=== PATIENT | female | born 1940 | race Caucasian/White ===

== ENCOUNTER → 2016-10-10 | Outpatient (CLI) | payer MEDICARE, BC ==
--- NOTE | 2016-10-10 15:32 | BD ---
EXAMINATION TYPE: MG DEXA axial skeleton. DATE OF EXAM: 10/10/2016 2:16 PM CLINICAL HISTORY: 76-year-old female osteoporosis Height: 61 Weight: 137 FRAX RISK QUESTIONS: Alcohol (3 or more units per day): no Family History (Parent hip fracture): no Glucocorticoids (More than 3mos): very very rarely uses inhaler (Ex: prednisone, prednisolone, methylprednisolone, dexamethasone, and hydrocortisone). History of Fracture in Adulthood: no Secondary Osteoporosis: 1. Type 1 Diabetes: no 2. Hyperthyroidism: no 3. Menopause before 45: yes 4. Malnutrition: no 5. Chronic liver disease: no Rheumatoid Arthritis: no Current Tobacco Use: no RISK FACTORS HISTORY OF: History of Fracture: no Family History of Osteoporosis: no Drink Alcohol: no Active: no Diet low in dairy products/other sources of calcium: no Postmenopausal woman: yes Take estrogen and/or progesterone medications: no Lost more than 2 inches in height since high school: no Frequent falls: no Poor Health: no Hyperparathyroidism: no Adrenal Insufficiency: no MEDICATIONS: Prednisone or other steroids: inhaler very very rarely Thyroid Medications: no Osteoporosis Medications: not now Which medication: Actonel How Long: no more than a year Additional Medications: calcium & Vitamin D, cholesterol meds EXAM MEASUREMENTS: Bone mineral densitometry was performed using the [facility]. Bone mineral density as measured about the Lumbar spine is: ----- L1-L4(G/cm2): 0.779 T Score Values are as follows: ----- L2: -3.3 ----- L3: -3.4 ----- L4: -3.1 ----- L1-L4: -3.3 Bone mineral density has: Increased 5.5% since study of: 07/02/2014 Bone mineral density about the R hip (g/cm2): 0.699 Bone mineral density about the L hip (g/cm2): 0.669 T Score values are as follows: -----R Neck: -2.4 -----L Neck: -2.7 -----R Intertrochanter: -2.9 -----L Intertrochanter: -2.5 Bone mineral density has: Decreased -0.9% since study of: 07/02/2014 IMPRESSION: Osteoporosis as indicated by T score values in the lumbar spine and both hips. There is increased fracture risk and therapy is usually indicated based on age. Re-Screen 1-2 years. NOTE: T-SCORE=SD OF THE YOUNG ADULT MEAN.
== END | disposition home or self-care (01) ==
LOC: RADBDWWP 12:57
PROVIDERS: ATTEND Obstetrics & Gynecology
DX: M81.0 Age-related osteoporosis without current pathological fracture (principal)
CPT/HCPCS: 77080

== ENCOUNTER → 2017-07-29 | Outpatient (CLI) | payer MEDICARE, BC ==
[2017-07-29 09:35] LABS: Basophils # (A) 0.1 k/uL (0-0.2); Basophils % (A) 1 %; CH 31.7; CHCM 31.8; Eosinophils # (A) 0.2 k/uL (0-0.7); Eosinophils % (A) 3 %; HCT 43.5 % (34.0-46.0); HGB 13.7 gm/dL (11.4-16.0); Luc # (Auto) 0.11; Luc % (Auto) 2; Lymphocytes # (A) 1.8 k/uL (1.0-4.8); Lymphocytes % (A) 36 %; MCH 31.6 pg (25.0-35.0); MCHC 31.5 g/dL (31.0-37.0); MCV 100.2 fL (80.0-100.0); Mean Platelet Volume 8.6; Monocytes # (A) 0.3 k/uL (0-1.0); Monocytes % (A) 6 %; Neutrophils # (A) 2.7 k/uL (1.3-7.7); Neutrophils % (A) 52 %; RBC 4.34 m/uL (3.80-5.40); RDW 13.5 % (11.5-15.5); WBC 5.2 k/uL (3.8-10.6); WBC (Perox) 4.91
[2017-07-29 09:53] LABS: ALT 26 U/L (9-52); AST 26 U/L (14-36); Alkaline Phosphatase 73 U/L (38-126); Anion Gap 7 mmol/L; Blood Urea Nitrogen 19 mg/dL (7-17); Calcium 9.6 mg/dL (8.4-10.2); Carbon Dioxide 28 mmol/L (22-30); Chloride 103 mmol/L (98-107); Cholesterol 191 mg/dL (<200); Glucose 94 mg/dL (74-99); HDL Cholesterol 76 mg/dL (40-60); Non-African American GFR(MDRD) >60 (>60 ml/min/1.73 sqM); Potassium 4.4 mmol/L (3.5-5.1); Sodium 138 mmol/L (137-145); Total Bilirubin 0.3 mg/dL (0.2-1.3); Total Protein 6.7 g/dL (6.3-8.2)
== END | disposition home or self-care (01) ==
LOC: LABWHC1 08:33
PROVIDERS: ATTEND Internal Medicine
DX: Z00.00 Encounter for general adult medical examination without abnormal findings (principal); E78.00 Pure hypercholesterolemia, unspecified
CPT/HCPCS: 36415; 80053; 80061; 84439; 84443; 85025

== ENCOUNTER → 2018-10-28 | Outpatient (CLI) | payer MEDICARE ==
[2018-10-28 10:18] LABS: Basophils # (A) 0.1 k/uL (0-0.2); Basophils % (A) 1 %; Eosinophils # (A) 0.2 k/uL (0-0.7); Eosinophils % (A) 3 %; HCT 42.9 % (34.0-46.0); Lymphocytes # (A) 1.9 k/uL (1.0-4.8); Lymphocytes % (A) 32 %; MCH 32.7 pg (25.0-35.0); MCHC 32.6 g/dL (31.0-37.0); MCV 100.4 fL (80.0-100.0); Mean Platelet Volume 8.3; Monocytes # (A) 0.3 k/uL (0-1.0); Monocytes % (A) 5 %; Neutrophils # (A) 3.3 k/uL (1.3-7.7); Neutrophils % (A) 57 %; Platelet Count 248 k/uL (150-450); RBC 4.28 m/uL (3.80-5.40); RDW 13.3 % (11.5-15.5); WBC 5.8 k/uL (3.8-10.6)
[2018-10-28 15:44] LABS: Albumin 4.4 g/dL (3.80-4.90); Albumin/Globulin Ratio 2.44 (1.60-3.17); Anion Gap 8.9 mmol/L (4.00-12.00); Calcium 9.5 mg/dL (8.7-10.3); Carbon Dioxide 28.1 mmol/L (21.6-31.8); Globulin 1.8 g/dL (1.6-3.3); LDL Cholesterol,Calculated 105.4 mg/dL (0.0-131.0); Potassium 4.4 mmol/L (3.5-5.5); Total Bilirubin 0.4 mg/dL (0.2-1.2); Total Protein 6.2 g/dL (6.2-8.2); VLDL Calculation 14.6 mg/dL (5.00-40.00)
[2018-10-28 15:50] LABS: T4, Free (Free Thyroxine) 1.2 ng/dL (0.80-1.80)
== END | disposition home or self-care (01) ==
LOC: LABWHC1 08:56
PROVIDERS: ATTEND Internal Medicine
DX: Z00.00 Encounter for general adult medical examination without abnormal findings (principal); E78.00 Pure hypercholesterolemia, unspecified; M15.9 Polyosteoarthritis, unspecified; M81.0 Age-related osteoporosis without current pathological fracture; J45.20 Mild intermittent asthma, uncomplicated; J47.9 Bronchiectasis, uncomplicated
CPT/HCPCS: 36415; 80053; 80061; 84439; 84443; 85025

== ENCOUNTER → 2021-02-01 | Outpatient (CLI) | payer MEDICARE ==
[2021-02-01 15:48] LABS: Basophils # (A) 0.07 X 10*3/uL (0.00-0.10); Basophils % (A) 1.1 %; Eosinophils # (A) 0.22 X 10*3/uL (0.04-0.35); Eosinophils % (A) 3.5 %; HCT 37.6 % (37.2-46.3); Lymphocytes # (A) 2.03 X 10*3/uL (0.90-5.00); Lymphocytes % (A) 31.9 %; MCH 32.2 pg (27.0-32.0); MCHC 31.9 g/dL (32.0-37.0); MCV 100.8 fL (80.0-97.0); Mean Platelet Volume 11.5 fL (9.5-12.2); Monocytes # (A) 0.53 X 10*3/uL (0.20-1.00); Monocytes % (A) 8.3 %; Neutrophils % (A) 54.9 %; Platelet Count 290 X 10*3/uL (140-440); RBC 3.73 X 10*6/uL (4.10-5.20); RDW 13.3 % (11.5-14.5); WBC 6.37 X 10*3/uL (4.50-10.00)
[2021-02-01 18:10] LABS: Erythrocyte Sedimentation Rate 18 mm/Hr (0-30)
[2021-02-02 00:15] LABS: African American GFR (CKD) 98.4 (60.0-200.0); Albumin 4.1 g/dL (3.80-4.90); Albumin/Globulin Ratio 2.05 (1.60-3.17); Anion Gap 9.7 mmol/L (4.00-12.00); BUN/Creat Ratio 26.67 Ratio (12.00-20.00); Carbon Dioxide 26.3 mmol/L (21.6-31.8); Chol/HDL Ratio 3.02; LDL Cholesterol,Calculated 108.6 mg/dL (0.0-131.0); Non-African American GFR(CKD) 84.9 (60.0-200.0); Potassium 4.5 mmol/L (3.5-5.5); Total Bilirubin 0.3 mg/dL (0.3-1.2); Total Protein 6.1 g/dL (6.2-8.2); VLDL Calculation 12.4 mg/dL (5.00-40.00)
== END | disposition home or self-care (01) ==
LOC: LABWHC1 08:34
PROVIDERS: ATTEND Internal Medicine
DX: Z00.00 Encounter for general adult medical examination without abnormal findings (principal); E78.5 Hyperlipidemia, unspecified
CPT/HCPCS: 36415; 80053; 80061; 84439; 84443; 85025; 85652

== ENCOUNTER → 2022-02-28 | Outpatient (CLI) | payer MEDICARE ==
[2022-02-28 14:50] LABS: Basophils # (A) 0.06 X 10*3/uL (0.00-0.10); Basophils % (A) 0.9 %; Eosinophils # (A) 0.15 X 10*3/uL (0.04-0.35); Eosinophils % (A) 2.2 %; HCT 40.5 % (37.2-46.3); HGB 12.8 g/dL (12.0-15.0); Immature Grans, Automated 0.3 %; Lymphocytes # (A) 2.31 X 10*3/uL (0.90-5.00); Lymphocytes % (A) 34.3 %; MCH 31.5 pg (27.0-32.0); MCHC 31.6 g/dL (32.0-37.0); MCV 99.8 fL (80.0-97.0); Mean Platelet Volume 11.6 fL (9.5-12.2); Monocytes # (A) 0.57 X 10*3/uL (0.20-1.00); Monocytes % (A) 8.5 %; NRBC Per 100 WBC 0 /100 WBCS (0.0-0.0); Neutrophils # (A) 3.62 X 10*3/uL (1.80-7.70); Neutrophils % (A) 53.8 %; Platelet Count 260 X 10*3/uL (140-440); RBC 4.06 X 10*6/uL (4.10-5.20); WBC 6.73 X 10*3/uL (4.50-10.00)
[2022-02-28 14:58] LABS: ALT 20 U/L (8-44); AST 31 U/L (13-35); African American GFR (CKD) 92.9 (60.0-200.0); Albumin 4.3 g/dL (3.8-4.9); Albumin/Globulin Ratio 1.65 (1.60-3.17); Alkaline Phosphatase 80 U/L (41-126); BUN/Creat Ratio 13.86 Ratio (12.00-20.00); Blood Urea Nitrogen 9.7 mg/dL (9.0-27.0); Calcium 9.1 mg/dL (8.7-10.3); Carbon Dioxide 28.2 mmol/L (20.0-27.5); Chloride 98 mmol/L (96-109); Globulin 2.6 g/dL (1.6-3.3); Glucose 99 mg/dL (70-110); LDL Cholesterol,Calculated 75.3 mg/dL (0.0-131.0); Non-African American GFR(CKD) 80.1 (60.0-200.0); Potassium 4.7 mmol/L (3.5-5.5); Sodium 135 mmol/L (135-145); Total Protein 6.9 g/dL (6.2-8.2); VLDL Calculation 11.66 mg/dL (5.00-40.00)
== END | disposition home or self-care (01) ==
LOC: LABWHC1 09:52
PROVIDERS: ATTEND Internal Medicine
DX: E78.1 Pure hyperglyceridemia (principal)
CPT/HCPCS: 36415; 80053; 80061; 84439; 84443; 85025

== ENCOUNTER → 2022-11-20 | Outpatient (CLI) | payer MEDICARE ==
[2022-11-20 15:27] LABS: African American GFR (CKD) 92.6 (60.0-200.0); Albumin 4.3 g/dL (3.8-4.9); Albumin/Globulin Ratio 1.9 (1.60-3.17); Anion Gap 12.3 mmol/L (10.00-18.00); BUN/Creat Ratio 21.71 Ratio (12.00-20.00); Calcium 9.5 mg/dL (8.7-10.3); Globulin 2.3 g/dL (1.6-3.3); Non-African American GFR(CKD) 79.9 (60.0-200.0); Potassium 4.8 mmol/L (3.5-5.5); Total Bilirubin 0.3 mg/dL (0.30-1.20); Total Protein 6.6 g/dL (6.2-8.2)
== END | disposition home or self-care (01) ==
LOC: LABWHC1 08:37
PROVIDERS: ATTEND Surgery
DX: K81.1 Chronic cholecystitis (principal)
CPT/HCPCS: 36415; 80053

== ENCOUNTER 2022-12-10 09:52 | Day surgery (SDC) | payer MEDICARE ==
[2022-12-06 08:57] VITALS: BMI 23.6
[~2022-12-10 09:52] MED LIST: ACETAMINOPHEN TAB 500 MG TAB PO PRN; DEXAMETHASONE SOD PHOSPHATE 4 MG/ML 1 ML VIAL IV ONE; HEPARIN SODIUM,PORCINE/PF 5,000 UNIT/0.5 ML SYRINGE SQ PRN; LIDOCAINE 1% (10MG/ML) FOR IV START INTRADERMA PRN; ONDANSETRON 4 MG/2 ML VIAL IVP ONE
[2022-12-10] MEDS: LACTATED RINGERS 1,000 ML IV SCH ×3 (10:21→16:10)
--- NOTE | 2022-12-10 11:25 | P.GSHP ---
History of Present Illness H&P Date: 12/10/22 Chief Complaint: Chronic cholecystitis 82-year-old female seen in the office 6 weeks ago. Patient with complaints of frequent right upper quadrant and epigastric pain. Seems to be aggravated by eating. Ultrasound shows numerous gallstones. No change in the color of her s kin urine or stool. Past Medical History Past Medical History: Asthma, COPD, Hyperlipidemia, Osteoarthritis (OA) Additional Past Medical History / Comment(s): tachycardia History of Any Multi-Drug Resistant Organisms: None Reported Past Surgical History: Hysterectomy Past Anesthesia/Blood Transfusion Reactions: No Reported Reaction Past Psychological History: No Psychological Hx Reported Smoking Status: Never smoker Past Alcohol Use History: None Reported Past Drug Use History: None Reported - Past Family History Mother Additional Family Medical History / Comment(s): heart disease Father Family Medical History: Cancer Medications and Allergies Home Medications Medication Instructions Recorded Confirmed Type Ezetimibe [Zetia] 10 mg PO DAILY 12/06/22 12/10/22 History Metoprolol Tartrate [Lopressor] 25 mg PO BID 12/06/22 12/10/22 History Allergies Allergy/AdvReac Type Severity Reaction Status Date / Time [id number] Reductase AdvReac muscle Verified 12/10/22 10:22 Inhibitor cramps Surgical - Exam Vital Signs Temp Pulse Resp BP Pulse Ox 97.8 F 65 16 162/69 97 12/10/22 10:19 12/10/22 10:19 12/10/22 10:19 12/10/22 10:19 12/10/22 10:19 - General Physical exam: General: Well-developed, well-nourished HEENT: Normocephalic, sclerae nonicteric Abdomen: Nontender, nondistended Extremities: No edema Neuro: Alert and oriented Assessment and Plan (1) Chronic cholecystitis Narrative/Plan: 82-year-old female with chronic cholecystitis. We'll proceed with laparoscopic, possible open cholecystectomy at this time. Risks of bleeding, infection, bile leak, bile duct injury, retained common bile duct stone, trocar injury, conversion to an open procedure, hernia, anesthesia related complications were reviewed. The patient understands and wishes to proceed. Current Visit: Yes Status: Acute Code(s): K81.1 - CHRONIC CHOLECYSTITIS SNOMED Code(s): 50993515
[2022-12-10] MEDS ORDERED: NEOSTIGMINE 1 MG/ML 10 ML VIAL ONE (11:32)
[2022-12-10] MEDS ORDERED: ETOMIDATE 2 MG/ML 10 ML VIAL ONE (11:32)
[2022-12-10] MEDS ORDERED: GLYCOPYRROLATE 0.2 MG/ML 2 ML VIAL ONE (11:32)
[2022-12-10] MEDS ORDERED: fentaNYL (PF) 50 MCG/ML 2 ML AMP ONE (11:32)
[2022-12-10] MEDS ORDERED: ePHEDrine 50 MG/ML 1 ML VIAL ONE (11:32)
[2022-12-10] MEDS ORDERED: ROCURONIUM 10 MG/ML (5 ML VIAL) IV ONE (11:32)
[2022-12-10] MEDS ORDERED: SUCCINYLCHOLINE CHLORIDE 200 MG/10 ML VIAL IV ONE (11:32)
[2022-12-10] MEDS ORDERED: ESMOLOL 100 MG/10 ML VIAL ONE (11:32)
[2022-12-10] MEDS ORDERED: BUPIVACAIN-EPI 0.25%-1:200,000 30 ML VIAL SQ ONE (11:45)
--- NOTE | 2022-12-10 12:42 | P.OP ---
Date of Procedure: 12/10/22 Procedure(s) Performed: PREOPERATIVE DIAGNOSIS: Chronic cholecystitis POSTOPERATIVE DIAGNOSIS: Same PROCEDURE: Laparoscopic cholecystectomy SURGEON: Lisandra EBL: Minimal see anesthesia record ANESTHESIA: Gen. COMPLICATIONS: None OPERATIVE PROCEDURE: The patient was brought and placed on the operating room table in the supine position. The patient was placed under general anesthesia at that time. The abdomen was prepped and draped in the usual sterile fashion. A small vertical infraumbilical incision was made. The fascia was grasped with the Sharon forceps. The fascia was retracted anteriorly. The Veress needle was advanced into the peritoneal cavity. The saline drop test was normal. Insufflation took place up to 15 mmHg. A 5 mm optical trocar was advanced and the peritoneal cavity. 2 additional 5 mm trochars were placed in the right upper quadrant under direct visualization. A 12 mm trocar was advanced into the epigastric incision site. The gallbladder was retracted superiorly and laterally. The peritoneum overlying the infundibulum was bluntly dissected. The patient's cystic duct was visualized. The junction between the cystic duct common and hepatic duct was identified. The critical view of safety was achieved after blunt dissection. The cystic duct was then divided after placement of 3 12 mm clips on the patient's side and one on the specimen side. The cystic artery was identified and clipped as well. A small vessel was seen along the gallbladder fossa and clipped as well. The gallbladder was then removed from the liver bed using electrocautery. The gallbladder was then removed from the epigastric trocar site with an Endo Catch bag. The gallbladder fossa was irrigated with saline. There was no evidence of any bleeding or biliary drainage seen. The fascia at the 12 millimeter site was closed using a Riaz-Aidee 0 Vicryl stitch. The trochars were then removed. The skin at all 4 sites was closed using a 4-0 Monocryl stitch. Skin glue was utilized on the incision sites. At the end of this procedure the sponge and needle counts were correct. DISPOSITION: Stable to the recovery room
[2022-12-10] MEDS ORDERED: traMADol 50 MG TAB PO SCH (12:45)
[2022-12-10] MEDS ORDERED: ACETAMINOPHEN TAB 325 MG TAB PO SCH (13:00)
[2022-12-10 13:01] VITALS: TEMP 97.2
[2022-12-10] MEDS: HYDROmorphone 0.5 MG/0.5 ML SYRINGE IVP PRN ×2 (13:15→13:28)
[2022-12-10 15:09] VITALS: RESP 18
[2022-12-10 15:10] VITALS: BP 145/73; PULSE 66
[2022-12-10] MEDS ORDERED: IBUPROFEN 600 MG TAB PO SCH (16:00)
== END 2022-12-10 16:15 | disposition home or self-care (01) ==
LOC: OR 09:52
PROVIDERS: ATTEND Surgery
DX: K81.1 Chronic cholecystitis (principal); J44.9 Chronic obstructive pulmonary disease, unspecified; E78.5 Hyperlipidemia, unspecified; M19.90 Unspecified osteoarthritis, unspecified site; Z90.710 Acquired absence of both cervix and uterus; Z82.49 Family history of ischemic heart disease and other diseases of the circulatory system; Z88.8 Allergy status to other drugs, medicaments and biological substances
CPT/HCPCS: 47562; J0330; J1100; J2710; J0690; J2405; J3010; J1170; J1644; 88304

== ENCOUNTER → 2023-02-12 | Outpatient (CLI) | payer MEDICARE ==
[2023-02-12 11:42] LABS: ALT 26 U/L (4-34); AST 36 U/L (14-36); African American GFR (CKD) >90 (>60 ml/min/1.73 sqM); Albumin 4.2 g/dL (3.5-5.0); Albumin/Globulin Ratio 1.4; Alkaline Phosphatase 91 U/L (38-126); Anion Gap 5 mmol/L; Blood Urea Nitrogen 12 mg/dL (7-17); Calcium 9.1 mg/dL (8.4-10.2); Carbon Dioxide 33 mmol/L (22-30); Chloride 97 mmol/L (98-107); Globulin 2.9 g/dL; Glucose 95 mg/dL (74-99); Non-African American GFR(CKD) 82 (>60 ml/min/1.73 sqM); Potassium 4.5 mmol/L (3.5-5.1); Sodium 135 mmol/L (137-145); Total Bilirubin 0.4 mg/dL (0.2-1.3); Total Protein 7.1 g/dL (6.3-8.2)
[2023-02-12 12:25] LABS: INR 0.9 (<1.2); Partial Thromboplastin Time 23.6 sec (22.0-30.0); Prothrombin Time 9.8 sec (9.0-12.0)
[2023-02-12 15:54] LABS: Basophils # (A) 0.06 X 10*3/uL (0.00-0.10); Basophils % (A) 0.9 %; Eosinophils # (A) 0.13 X 10*3/uL (0.04-0.35); HCT 41.4 % (37.2-46.3); HGB 13.5 d/dL (12.0-15.0); Lymphocytes # (A) 2.24 X 10*3/uL (0.90-5.00); Lymphocytes % (A) 34.3 %; MCH 32.3 pg (27.0-32.0); MCHC 32.6 d/dL (32.0-37.0); Mean Platelet Volume 11.8 FL (9.5-12.2); Monocytes # (A) 0.48 X 10*3/uL (0.20-1.00); Monocytes % (A) 7.4 %; NRBC Per 100 WBC 0 X 10*3/uL (0.00-0.01); Neutrophils # (A) 3.59 X 10*3/uL (1.80-7.70); Neutrophils % (A) 54.9 %; Platelet Count 274 X 10*3/uL (140-440); RBC 4.18 X 10*6/uL (4.10-5.20); WBC 6.53 X 10*3/uL (4.50-10.00)
--- NOTE | 2023-02-12 20:06 | CT ---
EXAMINATION TYPE: CT chest wo/w con DATE OF EXAM: 02/12/2023 COMPARISON: Radiograph 10/05/2022 HISTORY: 82-year-old female GB removed, CA of unknown primary, R16.0 K82.8 C80.1 C23. TECHNIQUE: Contiguous axial scanning of the chest before and after the administration of 100 mL of Is ovue 300. Coronal/sagittal reconstructions performed. CT DLP: 317.2mGycm. Automatic exposure control utilized for a dose reduction. FINDINGS: Heart is borderline enlarged without pericardial effusion. Ectasia of the ascending aorta 3.6 cm. Variant directly off of the left vertebral artery directly fro m the aortic arch. There is a 1.5 cm hypodense nodule of the right lobe of the thyroid gland that can be further evaluat ed with thyroid ultrasound. Large caliber to the main right and left pulmonary arteries measuring up to 2.7 cm suggesting underly ing pulmonary arterial hypertension. No thoracic lymphadenopathy by CT size criteria. Lower right paratracheal node measures up to 9 mm. Lungs show scattered tree-in-bud opacities and some centrilobular groundglass nodularity. 6 mm subpleural pulmonary nodule posterior right apex could reflect pleural parenchymal scarring. A couple benign calcified granulomas periphery of the right midlung. More focal 1.7 cm nodularity posterior right base could be infectious/inflammatory as well. There is some chronic volume loss and mild bronchiolectasis within the inferior lingula and medial ba silar right middle lobe. No pleural effusion. There is a small hiatal hernia. Cholecystectomy clips. Within the visualized upper abdomen, there are approximately 3 hepatic hypodensities which are nonspe cific, measuring up to 8 mm, first within the inferior right liver lobe, a second within segment 3, a nd the third in the mid left liver. These lesions should be reassessed at follow-up. A couple cysts are also noted within the liver, 1.0 cm in the left liver lobe and at the central hepa tic dome, 1.7 cm. Bones: Anterior endplate spondylosis lower thoracic spine. Normal variant sternal foramen. IMPRESSION: 1. Scattered tree-in-bud opacities as well as chronic volume loss within the inferior lingula and med ial right middle lobe. Correlate for infectious bronchiolitis and atypical infections including the p ossibility of atypical mycobacterial/EDWINA infections. Recommend pulmonary medicine evaluation. 2. A 1.7 cm area of nodularity at the posterior right base could represent an additional infectious/i nflammatory focus. Recommend three-month follow-up CT after any potential treatment. 3. Approximately 3 small hypodense lesions within the liver measuring up to 8 mm which are nonspecifi c. A couple additional lesions measuring up to 1.7 cm are also present and are suggestive of benign c ysts. The first 3 lesions should be reassessed at follow-up to exclude metastases. 4. Thyroid ultrasound to further characterize a 1.5 cm right thyroid lobe nodule.
== END | disposition home or self-care (01) ==
LOC: RADCTMAIN 10:47
PROVIDERS: ATTEND Transplant Surgery
DX: C23 Malignant neoplasm of gallbladder (principal); D89.834 Cytokine release syndrome, grade 4; E04.1 Nontoxic single thyroid nodule; K82.8 Other specified diseases of gallbladder; R16.0 Hepatomegaly, not elsewhere classified; K76.89 Other specified diseases of liver; R91.1 Solitary pulmonary nodule
CPT/HCPCS: 80053; 85025; 85610; 85730; 82105; 71270; 36415; Q9967

== ENCOUNTER → 2023-06-27 | Outpatient (CLI) | payer MEDICARE ==
[2023-06-27 15:23] LABS: African American GFR (CKD) >90 (>60 ml/min/1.73 sqM); Blood Urea Nitrogen 20 mg/dL (7-17); Non-African American GFR(CKD) 81 (>60 ml/min/1.73 sqM)
--- NOTE | 2023-06-28 10:58 | CT ---
EXAMINATION TYPE: CT ChestAbdPelvis w con CT DLP: 1183 mGycm, Automated exposure control for dose reduction was used. DATE OF EXAM: 06/27/2023 4:24 PM COMPARISON: 12/13/2022 CLINICAL INDICATION:Female, 83 years old with history of C23 MALIGNANT NEOPLASM OF GALLBLADDER; PHH, obs for mets. hx of ca in gallbladder. Technique: Multiple axial images of the chest, abdomen, and pelvis were obtained. Two-dimensional cor onal and sagittal reconstructions were obtained. Contrast used:80ml mL of Isovue 300 with IV Contrast, Oral contrast used: with Oral Contrast Findings: CHEST: LUNGS/ PLEURA: Scattered nodular densities are seen throughout the lungs with somewhat groundglass op acities appearance. Stable right upper lobe medial nodular-like density which could represent atelect asis and/or scarring. More inferiorly in the right upper lung on series 3 image 9 and series 3 image 15 of the nodular densities. There is atelectasis of the right middle lobe. AIRWAY: Patent and unremarkable. HEART: Size within normal limits. MEDIASTINUM: No gross evidence of adenopathy. VASCULATURE: No aortic aneurysm. MUSCULOSKELETAL: No acute osseous abnormalities. Right proximal humerus area of sclerosis which could represent bone island versus an chondroma.. SOFT TISSUES/LYMPH NODES: Unremarkable. LOWER NECK: No significant findings. ABDOMEN: ABDOMEN LIVER: Scattered bilateral probable hepatic cyst. GALLBLADDER AND BILE DUCTS: Gallbladder is surgically absent with mild intrahepatic and extra hepatic biliary dilatation likely physiologic and a postcholecystectomy change. No evidence of choledocholit hiasis. PANCREAS: Unremarkable. SPLEEN: Unremarkable. ADRENAL GLANDS: Unremarkable. KIDNEYS AND URETERS: No evidence of hydronephrosis or renal calculus. The ureters are unremarkable. PELVIS BLADDER: Unremarkable REPRODUCTIVE: The uterus is surgically absent. ABDOMEN & PELVIS STOMACH AND BOWEL: No evidence of bowel obstruction. Moderate hiatal hernia. PERITONEUM: No evidence of pneumoperitoneum or free fluid. VASCULATURE: No evidence of aortic aneurysm. MUSCULOSKELETAL: No acute osseous abnormalities LYMPH NODES: Indeterminate lymph node near the gallbladder fossa measuring 9 mm in short axis appears stable from 02/12/2023. SOFT TISSUE/ABDOMINAL WALL: Fat-containing ventral wall hernia superiorly. IMPRESSION: 1. Postcholecystectomy changes with nearby adjacent lymph node which appears stable from 02/12/2023. No other evidence for lymphadenopathy or evidence for metastatic disease. 2. Scattered centrilobular distributed pulmonary nodules and some more larger nodular densities. Cor relate for bronchiolitis and/or infectious/plantar process. Attention on short-term follow-up after t reatment is recommended in [address] chest. 3. Moderate hiatal hernia. 4. Scattered hepatic probable cyst.
== END | disposition home or self-care (01) ==
LOC: RADCTMAIN 14:26
PROVIDERS: ATTEND Internal Medicine
DX: C23 Malignant neoplasm of gallbladder (principal); K44.9 Diaphragmatic hernia without obstruction or gangrene; R91.8 Other nonspecific abnormal finding of lung field; Z90.49 Acquired absence of other specified parts of digestive tract
CPT/HCPCS: 82565; 84520; 71260; 74177; 36415; Q9967

== ENCOUNTER → 2023-07-30 | Outpatient (CLI) | payer MEDICARE ==
--- NOTE | 2023-07-30 12:28 | XR ---
EXAMINATION TYPE: XR ribs LT DATE OF EXAM: 07/30/2023 COMPARISON: NONE HISTORY: Pain TECHNIQUE: 4 views submitted FINDINGS: AC joint arthropathy with diffuse osteopenia. Subsegmental changes left lung base. Scoliosi s with degenerative changes of the spine. Surgical clips in the abdomen. No acute displaced rib fract ure identified. IMPRESSION: 1. No acute displaced rib fracture.
== END | disposition home or self-care (01) ==
LOC: RADXRMAIN 11:41
PROVIDERS: ATTEND Internal Medicine
DX: R07.81 Pleurodynia (principal)

== ENCOUNTER → 2023-12-26 | Outpatient (CLI) | payer MEDICARE ==
[2023-12-26 14:10] LABS: African American GFR (CKD) >90 (>60 ml/min/1.73 sqM); Blood Urea Nitrogen 17 mg/dL (7-17); Non-African American GFR(CKD) 81 (>60 ml/min/1.73 sqM)
--- NOTE | 2023-12-27 08:19 | CT ---
EXAMINATION TYPE: CT ChestAbdPelvis w con DATE OF EXAM: 12/26/2023 COMPARISON: 06/27/2023 HISTORY: gallbladder ca f/u CT DLP: 665.2 mGycm Automated exposure control for dose reduction was used. CONTRAST: CT scan of the chest, abdomen and pelvis is performed with Oral Contrast and with IV Contrast, patien t injected with 100 mL of Isovue 300. FINDINGS: CT chest: There is a new 8.8 mm nodule in the left lung apex which is suspicious for metastatic disease. There are multiple relatively stable scattered small focal areas of reticular nodular density which could r eflect chronic changes or acute inflammation but lymphangitic metastasis is not excluded. There is mild stable atelectasis in the right middle lobe and lingula. There is no pleural effusion, pleural thickening or pneumothorax. The great vessels and chest are normal there is no mediastinal, hilar or axillary adenopathy. There i s no pulmonary embolism. No focal osseous lesions are seen. There is a moderate hiatal hernia. CT abdomen and pelvis: There is surgical absence of the gallbladder.. There is no biliary ductal dilatation. There are multiple small stable hypodense densities within the liver consistent with simple liver cys ts. There is no focal mass or organomegaly involving the pancreas, spleen or adrenal glands. There is no solid renal mass or hydronephrosis. There is no retroperitoneal adenopathy or hemorrhage in the caliber of the abdominal aorta is normal. The bowel loops are normal in caliber and there is no dilatation or obstruction. No inflammatory kothari ges identified in the bowel wall and mesentery. There is no free intracranial air or fluid. There is no pelvic mass or adenopathy. There is no free fluid within the pelvis. No focal osseous lesions are seen. Soft tissue the abdomen and pelvis are normal. IMPRESSION: 1. New 8.8 mm left upper lobe lung nodule suspicious for metastatic disease. 2. Stable scattered reticular nodular densities which is a nonspecific finding and could represent ac [place] or chronic inflammatory change or lymphangitic metastasis. 3. Moderate hiatal hernia. 4. No metastatic disease within the abdomen or pelvis.
== END | disposition home or self-care (01) ==
LOC: RADCTMAIN 13:31
PROVIDERS: ATTEND Internal Medicine
DX: K44.9 Diaphragmatic hernia without obstruction or gangrene (principal); C23 Malignant neoplasm of gallbladder; J98.4 Other disorders of lung; R91.1 Solitary pulmonary nodule; Z90.49 Acquired absence of other specified parts of digestive tract
CPT/HCPCS: 82565; 84520; 71260; 74177; 36415; Q9967

== ENCOUNTER → 2024-07-03 | Outpatient (CLI) | payer MEDICARE ==
[2024-07-03 11:13] LABS: African American GFR (CKD) >90 (>60 ml/min/1.73 sqM); Blood Urea Nitrogen 15 mg/dL (7-17); Non-African American GFR(CKD) 84 (>60 ml/min/1.73 sqM)
--- NOTE | 2024-07-03 13:00 | CT ---
EXAMINATION TYPE: CT ChestAbdPelvis w con CT DLP: 540.8 mGycm, Automated exposure control for dose reduction was used. DATE OF EXAM: 07/03/2024 12:39 PM COMPARISON: CT chest abdomen and pelvis 12/26/2023, 06/27/2023 CLINICAL INDICATION:Female, 84 years old with history of C23 GALLBLADDER CA; PHH, f/u gallbladder can cer Technique: Multiple axial images of the chest, abdomen, and pelvis were obtained following the intrav enous administration of 100 mL Isovue-300. Oral contrast was administered. Two-dimensional coronal an d sagittal reconstructions were obtained. Findings: CHEST: LUNGS/ PLEURA: No pleural effusion or pneumothorax. Scattered reticular nodular opacities within the lungs. Majority demonstrate tree-in-bud nodular morphology. Previously seen 9 mm nodule within the le ft apex is not well-visualized on today's exam. Additional scattered calcified granulomas. AIRWAY: Patent and unremarkable.. HEART: Mildly prominent. No pericardial effusion. MEDIASTINUM: No evidence of adenopathy. VASCULATURE: No aortic aneurysm. MUSCULOSKELETAL: No acute osseous abnormalities. Stable sclerosis within the right proximal humerus l ikely related to an enchondroma. Multilevel degenerative disc disease. SOFT TISSUES/LYMPH NODES: Unremarkable. LOWER NECK: No significant findings. ABDOMEN: ABDOMEN LIVER: Multiple stable subcentimeter hypoattenuating structures are demonstrated throughout the liver , which are too small to accurately characterize but statistically likely to represent simple hepatic cysts. GALLBLADDER AND BILE DUCTS: The gallbladder is surgically absent. No suspicious soft tissue within th e gallbladder fossa. Expected intra and extra hepatic biliary duct dilatation post cholecystectomy. PANCREAS: Unremarkable. SPLEEN: Unremarkable. ADRENAL GLANDS: Unremarkable. KIDNEYS AND URETERS: No evidence of hydronephrosis or renal calculus. The kidneys enhance symmetrical ly. Contrast is demonstrated within both collecting systems on the delayed phase. PELVIS BLADDER: Incompletely distended but grossly unremarkable. REPRODUCTIVE: The uterus is surgically absent. ABDOMEN & PELVIS STOMACH AND BOWEL: Small hiatal hernia, duodenum is unremarkable. Enteric contrast reaches the sigmoi d colon. No focal wall thickening or surrounding inflammatory changes. No evidence of bowel obstructi on. PERITONEUM: No evidence of pneumoperitoneum or free fluid. VASCULATURE: Mild atherosclerotic calcifications are present throughout the abdominal aorta and its b ranches. No abdominal aortic aneurysm. Pelvis phleboliths. MUSCULOSKELETAL: No acute osseous abnormalities. No aggressive osseous lesion. Multilevel degenerativ e disc disease. Grade bony disease L4-L5 and L5-S1. LYMPH NODES: No gross evidence for lymphadenopathy. SOFT TISSUE/ABDOMINAL WALL: Ventral midline epigastric fat filled hernia with defect measuring up to 1.9 cm in diameter. IMPRESSION: 1. Previously seen 9 mm left apical pulmonary nodule is no longer visualized. Redemonstration of sca ttered peripheral reticulonodular opacities with some demonstrating a tree-in-bud morphology. Favored to represent chronic bronchiolitis from infectious/inflammatory etiology. Metastasis is not entirely excluded. Attention on follow-up exams. 2. Postsurgical changes from cholecystectomy. No suspicious soft tissue within the surgical bed. No lymphadenopathy identified. [facility], , 07/03/2024 12:57 PM
== END | disposition home or self-care (01) ==
LOC: RADCTMAIN 10:37
PROVIDERS: ATTEND Internal Medicine
DX: C23 Malignant neoplasm of gallbladder (principal); R91.8 Other nonspecific abnormal finding of lung field; Z90.49 Acquired absence of other specified parts of digestive tract
CPT/HCPCS: 82565; 84520; 71260; 74177; 36415; Q9967

== ENCOUNTER 2024-09-08 07:45 | Inpatient (IN) | payer MEDICARE ==
[2024-09-08] MEDS: MORPHINE SULFATE 2 MG/ML SYRINGE IVP STA (08:07)
[2024-09-08] MEDS: SODIUM CHLORIDE 0.9% 1,000 ML IV STA (08:07)
[2024-09-08 08:16] LABS: Basophils % (A) 0 %; Eosinophils # (A) 0.1 k/uL (0-0.7); Eosinophils % (A) 1 %; HCT 40.2 % (34.0-46.0); HGB 13.1 gm/dL (11.4-16.0); Lymphocytes # (A) 2.1 k/uL (1.0-4.8); Lymphocytes % (A) 20 %; MCH 32.5 pg (25.0-35.0); MCHC 32.6 g/dL (31.0-37.0); MCV 99.7 fL (80.0-100.0); Mean Platelet Volume 8.6; Monocytes # (A) 0.4 k/uL (0-1.0); Monocytes % (A) 4 %; Neutrophils # (A) 7.6 k/uL (1.3-7.7); Neutrophils % (A) 73 %; Platelet Count 255 k/uL (150-450); RBC 4.03 m/uL (3.80-5.40); RDW 12.9 % (11.5-15.5); WBC 10.3 k/uL (3.8-10.6)
[2024-09-08 08:27] LABS: INR 0.9 (<1.2); Partial Thromboplastin Time 22.3 sec (22.0-30.0); Prothrombin Time 10.5 sec (10.0-12.5)
--- NOTE | 2024-09-08 08:42 | ED ---
General Adult HPI - General Chief complaint: Fall Stated complaint: fall, dizziness Time Seen by Provider: 09/08/24 07:45 Source: patient, EMS, RN notes reviewed, old records reviewed Mode of arrival: EMS Limitations: no limitations - History of Present Illness Initial comments: Patient is an 84-year-old female presents emergency department with a fall. Has been dealing with vertigo/dizziness like symptoms for the last few weeks. States that she bent over in the bathroom after standing up and had the symptoms and fell directly onto her left hip. Denies hitting her head or losing consciousness. Denies any other injuries other than severe left hip pain. Was unable to stand up and EMS was called. Left hip is shortened and externally rotated. Denies any sensory deficits. Has no other acute complaints at this time. Does have a past medical history remarkable for chronic lung disease, hyperlipidemia, tachycardia and takes metoprolol on a daily basis. Is not on blood thinners. Presents for further evaluation at this time. - Related Data Home Medications Medication Instructions Recorded Confirmed Ezetimibe [Zetia] 10 mg PO Q2D@2100 12/06/22 09/08/24 Metoprolol Tartrate [Lopressor] 25 mg PO BID 12/06/22 09/08/24 Fluticasone/Umeclidin/Vilanter 1 puff INHALATION RT-DAILY 09/08/24 09/08/24 [Trelegy Ellipta 100-62.5-25] Rosuvastatin Calcium [Crestor] 5 mg PO Q2D@2100 09/08/24 09/08/24 Allergies Allergy/AdvReac Type Severity Reaction Status Date / Time [id number] Reductase AdvReac muscle Verified 09/08/24 09:58 Inhibitor cramps Review of Systems ROS Statement: Those systems with pertinent positive or pertinent negative responses have been documented in the HPI. Review of Systems: CONST: Denies fever EYES: Denies blurry vision ENT: Denies nasal congestion C/V: Denies Chest pain RESP: Denies shortness of breath GI: Denies abdominal pain : Denies dysuria SKIN: Denies rash. MSK: Endorses left hip pain NEURO: Denies headache ROS Other: All systems not noted in ROS Statement are negative. Past Medical History Past Medical History: Asthma, COPD, Hyperlipidemia, Osteoarthritis (OA) Additional Past Medical History / Comment(s): tachycardia History of Any Multi-Drug Resistant Organisms: None Reported Past Surgical History: Hysterectomy Past Anesthesia/Blood Transfusion Reactions: No Reported Reaction Past Psychological History: No Psychological Hx Reported Smoking Status: Never smoker Past Alcohol Use History: None Reported Past Drug Use History: None Reported - Past Family History Mother Additional Family Medical History / Comment(s): heart disease Father Family Medical History: Cancer General Exam - General Exam Comments Initial Comments: General: Appears in moderate distress secondary to the left hip pain HEAD: Normal with no signs of head trauma. Negative Hussein sign. Negative raccoon eyes. EYES: PERRLA, EOMI, conjunctiva normal, no discharge. Pupils are 3 mm and equal bilaterally. ENT: Hearing grossly intact, normal oropharynx. RESPIRATORY: Clear breath sounds bilaterally. No wheezes, rales, or rhonchi. C/V: Regular rate and rhythm. S1 and S2 auscultated, no edema, peripheral pulses 2+ and intact throughout ABD: Abd is soft, nontender, nondistended EXT: Decreased range of motion of left hip secondary to pain. No tenderness to palpation of the distal left lower extremity but patient has externally rotated and shortened left lower extremity. Neurovasc intact throughout the left lower extremity. No evidence of open fracture. Pelvis appears stable. SKIN: No rashes or lesions observed on exposed skin. NEURO: Alert and oriented x 4. Cranial nerves II-XII intact. No focal sensory or strength deficits. GCS of 15. Limitations: no limitations Course Vital Signs 09/08/24 09/08/24 09/08/24 07:55 08:26 09:15 Temperature 98.4 F Pulse Rate 61 75 86 Respiratory 20 20 20 Rate Blood Pressure 149/69 133/59 131/58 O2 Sat by Pulse 95 93 L 92 L Oximetry 09/08/24 09/08/24 11:37 13:00 Temperature Pulse Rate 87 95 Respiratory 20 18 Rate Blood Pressure 132/55 150/66 O2 Sat by Pulse 97 94 L Oximetry Medical Decision Making - Medical Decision Making Was pt. sent in by a medical professional or institution (, PA, OUTSIDE MEDICAL SALES REPRESENTATIVE, urgent care, hospital, or intermediate...) When possible be specific @ -No Did you speak to anyone other than the patient for history (EMS, parent, family, police, friend...)? What history was obtained from this source @ -No Did you review nursing and triage notes (agree or disagree)? Why? @ -I reviewed and agree with nursing and triage notes Were old charts reviewed (outside hosp., previous admission, EMS record, old EKG, old radiological studies, urgent care reports/EKG's, intermediate records)? Report findings @ -Old charts reviewed, no documented evidence of blood thinner use. Differential Diagnosis (chest pain, altered mental status, abdominal pain women, abdominal pain men, vaginal bleeding, weakness, fever, dyspnea, syncope, headache, dizziness, GI bleed, back pain, seizure, CVA, palpatations, mental health, musculoskeletal)? @ -Differential Musculoskeletal Muscular strain, contusion, ligament sprain, fracture, arthritis, septic arthritis, bursitis, cellulitis, muscle spasm, nerve compression, DVT, arterial occlusion, herpes zoster, electrolyte abnormality, tumor.... This is not meant to be in all inclusive list EKG interpreted by me (3pts min.). @ -As above X-rays interpreted by me (1pt min.). @ -Chest x-ray reveals no obvious acute cardiopulmonary process, hip and pelvis x-ray reveals a subcapital left femoral neck fracture with some displacement. CT interpreted by me (1pt min.). @ -CT brain, C-spine negative for any obvious acute traumatic process. Chronic scarring of the lungs present. U/S interpreted by me (1pt. min.). @ -None done What testing was considered but not performed or refused? (CT, X-rays, U/S, labs)? Why? @ -None What meds were considered but not given or refused? Why? @ -None Did you discuss the management of the patient with other professionals (professionals i.e. , PA, OUTSIDE MEDICAL SALES REPRESENTATIVE, lab, RT, psych nurse, professor of social work, milker machine, teacher, chief credit officer, housing case manager)? Give summary @ -I contacted the on-call orthopedics, Shaunna who works with Dr. Arvizu who accepted the admission. Consult placed to [facility], Dr. Nguyen for medical management. Patient made n.p.o. after midnight Was smoking cessation discussed for >3mins.? @ -No Was critical care preformed (if so, how long)? @ -No Were there social determinants of health that impacted care today? How? (Homelessness, low income, unemployed, alcoholism, drug addiction, transportation, low edu. Level, literacy, decrease access to med. care, [facility], rehab)? @ -No Was there de-escalation of care discussed even if they declined (Discuss DNR or withdrawal of care, Hospice)? DNR status @ -No What co-morbidities impacted this encounter? (DM, HTN, Smoking, COPD, CAD, Cancer, CVA, ARF, Chemo, Hep., AIDS, mental health diagnosis, sleep apnea, morbid obesity)? @ -None Was patient admitted / discharged? Hospital course, mention meds given and route, prescriptions, significant lab abnormalities, going to OR and other pertinent info. @ -Patient presents with dizziness resulting in a fall and a suspected left hip fracture injury. Cervical collar applied by EMS. We will obtain CT brain and C-spine out of abundance of caution as well as chest and hip and pelvis x-ray. Patient administered analgesia medications. Given a 1 L fluid bolus. Trauma labs will be obtained. Does not meet criteria for trauma activation. Patient was in agreement this plan. Vitals within acceptable limits. EKG showed no signs of acute ischemia.Imaging negative for any traumatic injury of the brain or C-spine. Chest x-ray unremarkable. Patient does have a left subcapital left femoral neck fracture. Laboratory studies show no obvious acute process. EKG shows no signs of acute ischemia. I updated the patient. He is neurovascular tact in the left lower extremity. Discussed with the patient that she requires admission for orthopedic evaluation. Will require surgery. She was in agreement this plan. I contacted the on-call orthopedics, Shaunna who works with Dr. Arvizu who accepted the admission. Consult placed to [facility], Dr. Nguyen for medical management. Undiagnosed new problem with uncertain prognosis? @ -No Drug Therapy requiring intensive monitoring for toxicity (Heparin, Nitro, Insulin, Cardizem)? @ -No Were any procedures done? @ -No Diagnosis/symptom? @ -Fall, left femoral neck fracture Acute, or Chronic, or Acute on Chronic? @ -Acute Uncomplicated (without systemic symptoms) or Complicated (systemic symptoms)? @ -Complicated Side effects of treatment? @ -None Exacerbation, Progression, or Severe Exacerbation] @ -No Poses a threat to life or bodily function? @ -Yes - Lab Data Result diagrams: 09/08/24 08:11 09/08/24 08:11 Lab Results 09/08/24 09/08/24 09/08/24 Range/Units 08:11 08:11 08:11 WBC 10.3 (3.8-10.6) k/uL RBC 4.03 (3.80-5.40) m/uL Hgb 13.1 (11.4-16.0) gm/dL Hct 40.2 (34.0-46.0) % MCV 99.7 (80.0-100.0) fL MCH 32.5 (25.0-35.0) pg MCHC 32.6 (31.0-37.0) g/dL RDW 12.9 (11.5-15.5) % Plt Count 255 (150-450) k/uL MPV 8.6 Neutrophils % 73 % Lymphocytes % 20 % Monocytes % 4 % Eosinophils % 1 % Basophils % 0 % Neutrophils # 7.6 (1.3-7.7) k/uL Lymphocytes # 2.1 (1.0-4.8) k/uL Monocytes # 0.4 (0-1.0) k/uL Eosinophils # 0.1 (0-0.7) k/uL Basophils # 0.0 (0-0.2) k/uL PT 10.5 (10.0-12.5) sec INR 0.9 (<1.2) APTT 22.3 (22.0-30.0) sec Sodium 136 L (137-145) mmol/L Potassium 4.9 (3.5-5.1) mmol/L Chloride 99 (98-107) mmol/L Carbon Dioxide 33 H (22-30) mmol/L Anion Gap 4 mmol/L BUN 17 (7-17) mg/dL Creatinine 0.58 (0.52-1.04) mg/dL Est GFR (CKD-EPI)AfAm >90 (>60 ml/min/1.73 sqM) Est GFR (CKD-EPI)NonAf 84 (>60 ml/min/1.73 sqM) Glucose 132 H (74-99) mg/dL Calcium 9.3 (8.4-10.2) mg/dL Total Bilirubin 0.4 (0.2-1.3) mg/dL AST 32 (14-36) U/L ALT 30 (4-34) U/L Alkaline Phosphatase 84 (38-126) U/L Total Protein 6.5 (6.3-8.2) g/dL Albumin 4.0 (3.5-5.0) g/dL Blood Type Blood Type Recheck Bld Type Recheck Status Antibody Screen Spec Expiration Date 09/08/24 Range/Units 08:11 WBC (3.8-10.6) k/uL RBC (3.80-5.40) m/uL Hgb (11.4-16.0) gm/dL Hct (34.0-46.0) % MCV (80.0-100.0) fL MCH (25.0-35.0) pg MCHC (31.0-37.0) g/dL RDW (11.5-15.5) % Plt Count (150-450) k/uL MPV Neutrophils % % Lymphocytes % % Monocytes % % Eosinophils % % Basophils % % Neutrophils # (1.3-7.7) k/uL Lymphocytes # (1.0-4.8) k/uL Monocytes # (0-1.0) k/uL Eosinophils # (0-0.7) k/uL Basophils # (0-0.2) k/uL PT (10.0-12.5) sec INR (<1.2) APTT (22.0-30.0) sec Sodium (137-145) mmol/L Potassium (3.5-5.1) mmol/L Chloride (98-107) mmol/L Carbon Dioxide (22-30) mmol/L Anion Gap mmol/L BUN (7-17) mg/dL Creatinine (0.52-1.04) mg/dL Est GFR (CKD-EPI)AfAm (>60 ml/min/1.73 sqM) Est GFR (CKD-EPI)NonAf (>60 ml/min/1.73 sqM) Glucose (74-99) mg/dL Calcium (8.4-10.2) mg/dL Total Bilirubin (0.2-1.3) mg/dL AST (14-36) U/L ALT (4-34) U/L Alkaline Phosphatase (38-126) U/L Total Protein (6.3-8.2) g/dL Albumin (3.5-5.0) g/dL Blood Type O Positive Blood Type Recheck No Previous Record Bld Type Recheck Status CABO Indicated Antibody Screen NEGATIVE Spec Expiration Date 09/11/20242310 - EKG Data -: EKG Interpreted by Me EKG Comments: 12-lead Electrocardiogram Interpretation Note EKG was reviewed and interpreted by myself. 12-lead ECG performed at 0756 is interpreted by me as revealing sinus bradycardia at a rate of 58 beats per minute. [place] is normal. [place] interval is 207 ms, QRS duration is 89 ms, QTc is 402 ms.. There were no ST or T wave abnormalities to suggest myocardial ischemia or injury. Nonspecific T wave inversions present. R wave progression across the precordium was satisfactory. By my interpretation this EKG is non- diagnostic for acute ischemia. Disposition Clinical Impression: Fall, Fracture of femoral neck, left Disposition: ADMITTED IP TO THIS HOSP Condition: Stable Time of Disposition: 09:33
--- NOTE | 2024-09-08 08:46 | CT ---
EXAMINATION TYPE: CT brain luanneine wo con DATE OF EXAM: 09/08/2024 8:30 AM COMPARISON: None. CLINICAL INDICATION: Female, 84 years old with history of trauma, Fall, dizziness, Technique: Examination of the head was done in axial plane without intravenous contrast. Coronal and sagittal reconstructions performed. CT of the cervical spine was obtained in axial plane without intravenous injection of contrast mater ial. Coronal and sagittal reformatted images were obtained from the axial views for evaluation of f ractures, spinal alignment and canal. CT DLP: 1300.1 mGycm, Automated exposure control for dose reduction was used. FINDINGS: Head: There is no evidence of acute intracranial hemorrhage, acute ischemic changes, mass, mass-effect, or extra-axial fluid collection. There is no effacement of cerebral sulci or basal subarachnoid cister ns. There is no hydrocephalus. There is no midline shift. Ramsay-white matter distinction is preserv ed. Mild to moderate patchy white matter hypodensities in the cerebral hemispheres. Mild age-related cere bral cortical volume loss. Upper nasal septal deviation. Some frothy partial opacification left sphenoid sinus. Trace mucosal th ickening ethmoid air cells. Mastoid air cells well pneumatized. Cervical spine: Suggestion of reticular and nodular infiltrates in the visualized upper lungs. No craniocervical junction abnormality, predental space widening, or prevertebral soft tissue swellin g. Degenerative change of the C1 dens articulation. Degenerative interbody ankylosis of C2-C4 levels. Moderate to severe degenerative disc disease C5-C7 levels. Hypertrophic facet and uncovertebral joint arthropathy throughout especially on the left. Degenerative trace grade 1 anterolisthesis C4-C5. Remaining alignment is maintained. No other canal c ompromise by CT. No acute fracture seen. Changes result in a moderate left neuroforaminal stenosis at C4-C5, [id number] on the left at C 5-C6. Sagittal and coronal reformatted images confirm above findings. COMBINED IMPRESSION: 1. Mild cerebral atrophy and mild to moderate patchy burden of chronic small vessel ischemic disease. No acute intracranial abnormality seen. 2. No acute fracture of the cervical spine. Moderate spondylotic changes with a degenerative trace gr jeremías 1 anterolisthesis C4-C5. 3. Possible acute left sphenoid sinusitis. Correlate for symptoms. 4. Some subtle interstitial infiltrates in the upper lungs. Correlate to exclude atypical pneumonias. [facility], , 09/08/2024 8:44 AM
[2024-09-08 08:54] LABS: ALT 30 U/L (4-34); AST 32 U/L (14-36); African American GFR (CKD) >90 (>60 ml/min/1.73 sqM); Alkaline Phosphatase 84 U/L (38-126); Anion Gap 4 mmol/L; Blood Urea Nitrogen 17 mg/dL (7-17); Calcium 9.3 mg/dL (8.4-10.2); Carbon Dioxide 33 mmol/L (22-30); Chloride 99 mmol/L (98-107); Glucose 132 mg/dL (74-99); Non-African American GFR(CKD) 84 (>60 ml/min/1.73 sqM); Potassium 4.9 mmol/L (3.5-5.1); Sodium 136 mmol/L (137-145); Total Bilirubin 0.4 mg/dL (0.2-1.3); Total Protein 6.5 g/dL (6.3-8.2)
[2024-09-08] MEDS: MORPHINE SULFATE 4 MG/ML SYRINGE IVP STA (09:12)
[2024-09-08] MEDS ORDERED: NALOXONE 0.4 MG/ML 1 ML VIAL IV PRN (09:26)
--- NOTE | 2024-09-08 09:44 | XR ---
EXAMINATION TYPE: XR chest 1V portable, XR Hip 2 views LT and AP Pelvis DATE OF EXAM: 09/08/2024 9:00 AM COMPARISON: Chest 05/20/2024 CLINICAL INDICATION: Female, 84 years old with pain after history of trauma, , FINDINGS: Chest: Heart mildly enlarged. Diffuse interstitial density shows an increase from prior exam. Some focal pat ze right basilar opacity is similar. No pleural effusion. Osteopenia. Pelvis and left hip: Osteopenia. Mild marginal spurring of both hips but were relative preservation of the joint space. Th ere is a subcapital left femoral neck fracture with mild proximal displacement. IMPRESSION: Chest: 1. COPD with mild cardiomegaly. Interstitial density has increased. Correlate to exclude mild CHF wit h pulmonary vascular congestion versus atypical pneumonias. Pelvis and left hip: 2. Osteopenia with a subcapital left femoral neck fracture showing some proximal displacement. [facility], Workstation: [facility], 09/08/2024 9:42 AM
[2024-09-08] MEDS: SODIUM CHLORIDE 0.9% 1,000 ML IV SCH (09:46)
--- NOTE | 2024-09-08 10:30 | P.HPOR ---
History of Present Illness H&P Date: 09/08/24 This is an 84 year-old female who is admitted for a left hip fracture. Patient states that she became dizzy and fell at home early this morning. Patient states that she does live alone at home and normally ambulates without difficulty. Patient denies any head injury. Patient's past medical history significant for asthma, COPD, hyperlipidemia, osteoarthritis and tachycardia. Patient denies being on any blood thinners. Patient denies any fever/chills, chest pain, shortness breath, abdominal pain, numbness, weakness or tingling. Review of Systems See HPI. Past Medical History Past Medical History: Asthma, COPD, Hyperlipidemia, Osteoarthritis (OA) Additional Past Medical History / Comment(s): tachycardia History of Any Multi-Drug Resistant Organisms: None Reported Past Surgical History: Hysterectomy Past Anesthesia/Blood Transfusion Reactions: No Reported Reaction Past Psychological History: No Psychological Hx Reported Smoking Status: Never smoker Past Alcohol Use History: None Reported Past Drug Use History: None Reported - Past Family History Mother Additional Family Medical History / Comment(s): heart disease Father Family Medical History: Cancer Medications and Allergies Home Medications Medication Instructions Recorded Confirmed Type Ezetimibe [Zetia] 10 mg PO Q2D@2100 12/06/22 09/08/24 History Metoprolol Tartrate [Lopressor] 25 mg PO BID 12/06/22 09/08/24 History Fluticasone/Umeclidin/Vilanter 1 puff INHALATION RT-DAILY 09/08/24 09/08/24 H istory [Trelegy Ellipta 100-62.5-25] Rosuvastatin Calcium [Crestor] 5 mg PO Q2D@2100 09/08/24 09/08/24 History Allergies Allergy/AdvReac Type Severity Reaction Status Date / Time [id number] Reductase AdvReac muscle Verified 09/08/24 09:58 Inhibitor cramps Physical Examination On exam patient is resting comfortably in bed in no acute distress. Patient is alert and oriented 3. Left lower extremity: Shortened and externally rotated. Skin intact. There is mild swelling present. Calf is soft and nontender to palpation. Dorsalis pedis pulse is 2+. Patient has good range of motion of the left foot and ankle. Le ft lower extremity is warm and well-perfused. Exams of the head, neck, bilateral upper extremities and the right lower extremity are within normal limits. Results An x-ray report of the left hip and pelvis dated 09/08/2024 reveals osteopenia with a subcapital left femoral neck fracture showing some proximal displacement. - Labs Labs: Abnormal Lab Results - Last 24 Hours (Table) 09/08/24 Range/Units 08:11 Sodium 136 L (137-145) mmol/L Carbon Dioxide 33 H (22-30) mmol/L Glucose 132 H (74-99) mg/dL H & H 09/08/24 Range/Units 08:11 Hgb 13.1 (11.4-16.0) gm/dL Hct 40.2 (34.0-46.0) % Coagulation 09/08/24 Range/Units 08:11 INR 0.9 (<1.2) Result Diagrams: 09/08/24 08:11 09/08/24 08:11 Assessment and Plan (1) Fall Current Visit: Yes Status: Acute Code(s): W19.XXXA - UNSPECIFIED FALL, INITIAL ENCOUNTER SNOMED Code(s): 3089888 (2) Fracture of femoral neck, left Current Visit: Yes Status: Acute Code(s): S72.002A - FRACTURE OF UNSP PART OF NECK OF LEFT FEMUR, INIT SNOMED Code(s): 2062899 Plan: 1. X-rays are reviewed revealing a left femoral neck fracture. 2. Patient is to be NPO after midnight. 3. Continue bedrest and pain control. 4. Planning for left hip hemiarthroplasty with direct anterior approach on 09/09/[address] Jose cadena pending medical clearance and patient consent. Questions and concerns are addressed at bedside with the patient and her family today.
[2024-09-08] MEDS: MORPHINE SULFATE 4 MG/ML SYRINGE IV PRN (11:37)
--- NOTE | 2024-09-08 12:20 | P.CONS ---
History of Present Illness - Reason for Consult Consult date: 09/08/24 Medical Management Requesting physician: Jose Arvizu - History of Present Illness History of Presenting Illness: Patient is a very pleasant 84-year-old female with a past medical history of asthma with COPD, vertigo, atrial tachycardia on metoprolol, hyperlipidemia, and osteoarthritis. She presented to the emergency department secondary to fall at home. Patient reports she has been intermittently struggling with her vertigo and that when she bent over in the bathroom today and stood up she fell to the floor landing on her left hip. Patient denies hitting her head or having any loss of consciousness but did report severe pain to her left hip and lower leg immediately and family called EMS for transport to the hospital. Upon arrival to our facility, patient underwent evaluation in the emergency department. Vital signs upon arrival show blood pressure 149/69, heart rate 61, respiratory rate 20, temp 98.4 F, and SpO2 of 95% on room air. Patient's oxygen saturations did desaturate to 90% after receiving morphine and was placed on 2 L O2 via nasal cannula. EKG completed showing sinus bradycardia at 58 bpm with T wave inversion in leads V2 and V3 and no noted ST abnormality showing no signs of acute ischemia upon personal review and interpretation. Chest x-ray completed showing COPD with mild cardiomegaly. CT head showing mild cerebral atrophy with mild to moderate patchy burden of chronic small vessel ischemic changes but negative for acute intracranial abnormality. CT cervical spine negative for acute fracture of the cervical spine revealing moderate spondylitic changes. CT also revealing possible acute left sphenoid sinusitis, however patient asymptomatic and denies having any sinus pressure/pain, nasal drainage, or headache. X-ray left hip and pelvis showing osteopenia with a subcapital left femoral neck fracture with proximal displacement. Labs completed and reviewed. CBC unremarkable. Coagulation profile normal findings. BMP showing mild hypercarbia with bicarb of 33 otherwise normal findings. Blood glucose was 132. Liver profile unremarkable. Patient admitted under orthopedic surgery team and we were consulted for medical management throughout hospitalization. Patient denies any recent fevers or exposure to known ill contacts, headache, changes in vision or hearing, sinus pressure or pain, cough or congestion, chest pain, palpitations, shortness of breath, nausea, or vomiting. Patient does report struggling with vertigo but states this has been ongoing and only upon standing or quick position changes. Patient with possible orthostatic hypotension based upon symptoms, however unable to complete orthostatic vitals as patient is on strict bedrest at this time. Therefore further evaluation will need to be completed at a later date. Review of systems: Pertinent positives and negatives as discussed in HPI, a complete review of systems was performed and all other systems are negative. Physical exam: Vital signs reviewed and stable. General: Nontoxic, no distress and appears stated age. Derm: Skin warm and dry, normal coloration for ethnicity. Head: Atraumatic, normocephalic and symmetric. Eyes: EOM's intact, no lid lag, and anicteric sclera Mouth: no lip lesions, mucus membranes moist Cardiovascular: regular rate and rhythm with normal S1S2, soft systolic murmur, positive posterior tibial pulses bilaterally, and cap refill < 2 seconds. Lungs: Respirations even, regular, and unlabored on room air. Lungs CTA bilaterally, no rhonchi, no rales, no wheezing, and no accessory muscle usage. Abdominal: soft, nontender to palpation, no guarding, no appreciable organomegaly Ext: No gross muscle atrophy, no edema, no contractures. Sensation intact. Patient with left lower extremity external rotation and shortening. She is able to wiggle and move toes without difficulties. Neuro: Speech clear, face symmetrical and CN II-XII grossly intact with no noted focal neuro deficits Psych: Alert and oriented to person, place, time, and situation. Appropriate and pleasant affect. Assessment and Plan of Care: Left displaced femoral neck fracture -Management per primary admitting orthopedic surgery team including DVT prophylaxis, pain management, weightbearing, and PT/OT. -Patient to remain on strict bedrest pending advancement of activity by orthopedic surgery team. -Patient reports morphine 4 mg was too strong and family at bedside also expressing concern. Patient did desaturate slightly after receiving [address] patient on [place] of 1000 mg scheduled every 6 hours with a decreased dose of morphine at 2 mg every 3 hours as needed for breakthrough pain. -Order placed for Green catheter secondary to prolonged immobility. Preoperative clearance -NSQIP surgical risk calculator score was completed. Patient is at an above average risk to undergo planned left hip hemiarthroplasty with an above average risk of 3.7% for serious complication with average risk being 3.6%, above average risk for cardiac complication at 0.4% with average risk being 0.3%, and an above average risk of at 0.4% with average risk being 0.2%. -Patient is at an above average risk to undergo planned surgical intervention, however due to urgent need for surgical repair of left hip fracture and increased risk of mortality and delaying surgery there are no absolute contraindications for patient to undergo surgery from a medical standpoint at this time. Recommend pulmonary clearance secondary to patient's history of asthma with COPD and current need for oxygen supplementation. [employer] Salesperson was consulted for pulmonary clearance. Asthma with COPD -Patient follows with Dr. Martínez outpatient denies home oxygen use. -Currently requiring 2 L supplemental oxygen after receiving morphine for pain management. -Continue Trelegy Ellipta inhaler 1 puff daily (secondary to hospital availability supplement with Symbicort 80-4.5 mcg inhaler 2 puffs twice daily and Atrovent nebulizer 4 times daily) -Will consult surgical attendant for pulmonary clearance for completion of surgical procedure. Vertigo -Patient does report struggling with vertigo off and on for a while now but states this has been ongoing and only upon standing or quick position changes. Suspect underlying orthostatic hypotension based upon reported symptoms, however unable to complete orthostatic vitals at this time as patient is on strict bedrest at this time. Therefore further evaluation will need to be completed at a later date. Patient denies dizziness/lightheadedness at rest. History of atrial tachycardia, currently maintaining normal sinus rhythm -Continue metoprolol 25 mg twice daily. Hyperlipidemia -Continue daily medication regimen with Zetia 10 mg nightly and Crestor 5 mg every other day. Data and imaging reviewed: As stated above in HPI Thank you for allowing us to participate in the care of this pleasant patient. Do not hesitate to contact us with questions. Someone can be reached from the [facility] hospitalist group all hours of the day at [phone] or via [employer]. Patient was seen independently by Nurse Practitioner. This document was prepared using [employer] dictation software. Please allow for errors in software engineering analyst while rare they do occur. Vlad Stanford NP rendered care for this patient independently, reviewed the findings and plan as documented in the note above and agree with plan. I did not physically speak with or examine the patient on this date. Past Medical History Past Medical History: Asthma, COPD, Hyperlipidemia, Osteoarthritis (OA) Additional Past Medical History / Comment(s): tachycardia History of Any Multi-Drug Resistant Organisms: None Reported Past Surgical History: Hysterectomy Past Anesthesia/Blood Transfusion Reactions: No Reported Reaction Past Psychological History: No Psychological Hx Reported Smoking Status: Never smoker Past Alcohol Use History: None Reported Past Drug Use History: None Reported - Past Family History Mother Additional Family Medical History / Comment(s): heart disease Father Family Medical History: Cancer Medications and Allergies Home Medications Medication Instructions Recorded Confirmed Type Ezetimibe [Zetia] 10 mg PO Q2D@2100 12/06/22 09/08/24 History Metoprolol Tartrate [Lopressor] 25 mg PO BID 12/06/22 09/08/24 History Fluticasone/Umeclidin/Vilanter 1 puff INHALATION RT-DAILY 09/08/24 09/08/24 History [Trelegy Ellipta 100-62.5-25] Rosuvastatin Calcium [Crestor] 5 mg PO Q2D@2100 09/08/24 09/08/24 History Allergies Allergy/AdvReac Type Severity Reaction Status Date / Time [id number] Reductase AdvReac muscle Verified 09/08/24 09:58 Inhibitor cramps Physical Exam Vitals: Vital Signs Temp Pulse Resp BP Pulse Ox 09/08/24 11:37 87 20 132/55 97 09/08/24 09:15 86 20 131/58 92 L 09/08/24 08:26 75 20 133/59 93 L 09/08/24 07:55 98.4 F 61 20 149/69 95 Intake and Output 09/07/24 09/08/24 09/08/24 22:59 06:59 14:59 Other: Weight 58.06 kg Results CBC & Chem 7: 09/08/24 08:11 09/08/24 08:11 Labs: Abnormal Lab Results - Last 24 Hours (Table) 09/08/24 Range/Units 08:11 Sodium 136 L (137-145) mmol/L Carbon Dioxide 33 H (22-30) mmol/L Glucose 132 H (74-99) mg/dL
[2024-09-08] MEDS: ACETAMINOPHEN IV (For NPO) 1,000 MG in EMPTY BAG 1 BAG IVPB SCH (12:54)
[2024-09-08] MEDS: MORPHINE SULFATE 2 MG/ML SYRINGE IV PRN (15:08)
[2024-09-08] MEDS: DEXAMETHASONE SOD PHOSPHATE 4 MG/ML 1 ML VIAL IV ONE (16:16)
[2024-09-08] MEDS: LACTATED RINGERS 1,000 ML IV SCH (16:17)
[2024-09-08] MEDS: ATORVASTATIN 10 MG TAB PO SCH (21:17)
[2024-09-08] MEDS: HEPARIN SODIUM,PORCINE 5,000 UNIT/ML 1 ML VIAL SQ SCH (21:17)
[2024-09-08] MEDS: METOPROLOL TARTRATE 25 MG TAB PO SCH (21:17)
[2024-09-08] MEDS: EZETIMIBE 10 MG TAB PO SCH (21:17)
[2024-09-08 22:38] LABS: Appearance,Urine Clear (Clear); Bilirubin,Urine Negative (Negative); Blood,Urine Negative (Negative); Color,Urine Yellow; Glucose,Urine (UA) Negative (Negative); Ketones,Urine 1+ (Negative); Leukocyte Esterase,Urine Negative (Negative); Nitrite,Urine Negative (Negative); Protein,Urine Trace (Negative)
[2024-09-08 23:04] LABS: Amphetamine Screen,Urine Not Detected (NotDetected); Barbiturate Screen,Urine Not Detected (NotDetected); Benzodiazepines Screen,Urine Not Detected (NotDetected); Cocaine Screen,Urine Not Detected (NotDetected); Methadone Screen, Urine Not Detected (NotDetected); Opiate Screen,Urine Detected (NotDetected); Oxycodone Screen, Urine Not Detected (NotDetected); Phencyclidine Screen,Urine Not Detected (NotDetected); Tricyclic Antidepressant,Urine Not Detected (NotDetected); Urn Cannabinoid Scrn Not Detected (NotDetected)
--- NOTE | 2024-09-09 04:23 | P.CNPUL ---
History of Present Illness Consult date: 09/09/24 Requesting physician: Vlad Stanford Reason for consult: other (Pulmonary clearance for surgery) Chief complaint: Fall History of present illness: Patient presented emergency department yesterday morning after having a fall at home. Having episodes of vertigo/dizziness over the last several weeks. 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 Following this could not move her left leg without severe pain. Denies losing consciousness or head trauma. Brought to the emergency department yesterday morning by EMS. X- ray of the left hip showing osteopenia with a subcapital left femoral neck fracture showing some proximal displacement. We are consulted for preoperative pulmonary clearance. Patient has history of moderate COPD. Has an FEV1 55% of predicted. Utilizes combination of Trelegy maintenance inhaler as well as albuterols nebs twice daily. She has never smoked tobacco products. Chest CT done July, which showed resolution of previously seen 9 mm left apical pulmonary nodule. Redemonstration of scattered peripheral and reticular nodular opacities with some demonstration and tree-in-bud morphology. Favored to represent chronic bronchiectatic changes. Patient also has past medical history significant for hypertension, hyperlipidemia, and gallbladder CA with previous cholecystectomy. Brain and neck CT did not show any intracranial hemorrhage or mass effect. No cervical spine fracture or subluxation. CBC unremarkable, hemoglobin 13.1 g/dL. CMP was also unremarkable. Patient is currently being evaluated on the general medical floor. She is alert and oriented. She is currently resting fairly comfortably in bed. Continues to have left hip pain. Neurovascular status of the lower extremity intact. She is on 2 L/min nasal cannula. Denies shortness of breath, and is in no respiratory distress. Denies any infectious symptoms. No change in her chronic cough. States that her COPD has been fairly well-controlled after starting her Trelegy inhaler 3 months ago. Chest x-ray on arrival showing cardiomegaly, and chronic interstitial changes may be slightly more prominent from previous. Focal patchy right midlung airspace opacity unchanged. Current vital signs: Temperature 98.7 F, heart rate 82 bpm, blood pressure 138/79 mmHg, nontachypneic, SpO2 reading 94% on 2 L/min nasal cannula. Review of Systems Constitutional: Denies chills, Denies fever, Denies lethargy, Denies poor appetite, Denies weight gain, Denies weight loss Ears, nose, mouth and throat: Denies headache, Denies nasal congestion, Denies nasal discharge, Denies post-nasal drip, Denies sinus pain, Denies sinus pressure, Denies sore throat Cardiovascular: Denies chest pain, Denies leg edema, Denies orthopnea, Denies palpitations, Denies paroxysmal nocturnal dyspnea, Denies syncope Respiratory: Reports cough, Denies congestion, Denies cough with sputum, Denies dyspnea, Denies excessive sputum, Denies home oxygen, Denies respiratory infect ions, Denies wheezing Gastrointestinal: Denies abdominal pain, Denies diarrhea, Denies nausea, Denies vomiting Genitourinary: Denies dysuria Musculoskeletal: Reports fractures, Reports limitation of motion, Denies leg numbness/tingling Integumentary: Denies rash Neurological: Denies seizures, Denies syncope Psychiatric: Denies anxiety, Denies depression Past Medical History Past Medical History: Asthma, COPD, Hyperlipidemia, Osteoarthritis (OA) Additional Past Medical History / Comment(s): tachycardia History of Any Multi-Drug Resistant Organisms: None Reported Past Surgical History: Hysterectomy Past Anesthesia/Blood Transfusion Reactions: No Reported Reaction Past Psychological History: No Psychological Hx Reported Smoking Status: Never smoker Past Alcohol Use History: None Reported Past Drug Use History: None Reported - Past Family History Mother Additional Family Medical History / Comment(s): heart disease Father Family Medical History: Cancer Medications and Allergies Home Medications Medication Instructions Recorded Confirmed Type Ezetimibe [Zetia] 10 mg PO Q2D@209912/06/22 09/08/24 History Metoprolol Tartrate [Lopressor] 25 mg PO BID 12/06/22 09/08/24 History Fluticasone/Umeclidin/Vilanter 1 puff INHALATION RT-DAILY 09/08/24 09/08/24 History [Trelegy Ellipta 100-62.5-25] Rosuvastatin Calcium [Crestor] 5 mg PO Q2D@209909/08/24 09/08/24 History Allergies Allergy/AdvReac Type Severity Reaction Status Date / Time [id number] Reductase AdvReac muscle Verified 09/08/24 09:58 Inhibitor cramps Physical Exam Vitals: Vital Signs Temp Pulse Pulse Resp BP BP Pulse Ox 09/09/24 01:58 98.7 F 82 18 138/79 94 L 09/08/24 19:27 98.8 F 87 16 145/79 94 L 09/08/24 18:09 99.7 F H 92 18 150/77 90 L 09/08/24 17:27 87 18 151/83 95 09/08/24 16:00 84 20 137/66 96 09/08/24 14:00 95 18 144/61 95 09/08/24 13:00 95 18 150/66 94 L 09/08/24 11:37 87 20 132/55 97 09/08/24 09:15 86 20 131/58 92 L 09/08/24 08:26 75 20 133/59 93 L 09/08/24 07:55 98.4 F 61 20 149/69 95 Intake and Output 09/08/24 09/08/24 09/09/24 14:59 22:59 06:59 Other: Voiding Method External Catheter # Voids 1 Weight 58.06 kg GENERAL EXAM: Alert, 84-year-old female, laying in a supine position, comfortable in no apparent distress. HEAD: Normocephalic and atraumatic EYES: Normal reaction of pupils, equal size. NOSE: Clear with pink turbinates. THROAT: No erythema or exudates. NECK: No masses, no JVD. CHEST: No chest wall deformity. LUNGS: Equal air entry with no crackles, wheeze, rhonchi or dullness. On 2 L/min nasal cannula. No conversational dyspnea or accessory muscle use.. CVS: S1 and S2 normal with no audible murmur, regular rhythm. No extra heart sounds ABDOMEN: No hepatosplenomegaly, active bowel sounds, no guarding or rigidity. SPINE: No scoliosis or deformity SKIN: No rashes CENTRAL NERVOUS SYSTEM: No focal deficits, tone is normal in all 4 extremities. EXTREMITIES: There is no peripheral edema, clubbing, or cyanosis. Peripheral pulses are intact. Left lower extremity movement limited by pain. Sensation and distal range of motion is intact. Peripheral pulses intact. Results - Laboratory Findings CBC and BMP: 09/08/24 08:11 09/08/24 08:11 PT/INR, D-dimer PT 10.5 sec (10.0-12.5) 09/08/24 08:11 INR 0.9 (<1.2) 01/07/25 08:11 Abnormal lab findings: Abnormal Labs 09/08/24 09/08/24 07:53 08:11 Sodium 136 L Carbon Dioxide 33 H Glucose 132 H Urine Protein Trace H Urine Ketones 1+ H Urine Opiates Screen Detected H - Diagnostic Findings Chest x-ray: image reviewed Assessment and Plan Assessment: Fall, sustaining displaced subcapital left femoral neck fracture. Plan for surgical intervention, possibly in the morning Moderate chronic obstructive pulmonary disease, with an FEV1 55% of predicted, currently inactive and stable History of mild intermittent asthma Lifelong non-smoker Hypertension History of hyperlipidemia History of gallbladder cancer and previous cholecystectomy Plan: From a pulmonary standpoint, patient is cleared for repair of her left femoral neck fracture Her COPD/asthma appears stable and inactive. Continue supplemental oxygen to maintain oxygen saturation of 92% or greater Resume COPD maintenance medications. Will start patient on combination of Symbicort inhaler and DuoNebs [id number]. May substitute for Trelegy inhaler if made available. We will continue to follow I have personally seen and examined the patient, performed the documentation and the assessment and plan as written. Number of minutes spent on the visit:20, lisinopril 09/09/2024, the patient is being seen in a joint evaluation along with the nurse practitioner. The patient is known to have chronic stable COPD with an FEV1 of 55% of predicted. The patient presented with a fall that she sustained a sub capital left femoral neck fracture. The patient is going to be taken to the operating room for an ORIF. Her chest x-ray findings are stable consistent with COPD. The patient is currently on 2 L of oxygen by nasal cannula with a pulse ox of 94%. Afebrile. Hemodynamically stable. Incentive spirometer was provided. She is also on heparin subcu for DVT prophylaxis. No reported chest pain. No pulmonary contraindications for surgery and the patient should be able to tolerate the surgery under general anesthesia. Will continue following her postoperative course along with the surgical team. In terms of her COPD, she has been maintained on Trelegy Ellipta 1 puff on a daily basis. The patient can utilize her Trelegy Ellipta from home and we will going to provide also DuoNeb updrafts 4 times daily and as needed while in the hospital and postop. Time with Patient: Greater than 30
[2024-09-09] MEDS ORDERED: HYDROmorphone 0.5 MG/0.5 ML SYRINGE IVP PRN ×4 (07:00→18:18)
[2024-09-09] MEDS ORDERED: IPRATROPIUM 0.5 MG/2.5 ML NEBU INHALATION SCH (08:00)
[2024-09-09 08:21] LABS: Basophils # (A) 0.01 X 10*3/uL (0.00-0.10); Basophils % (A) 0.1 %; Eosinophils # (A) 0 X 10*3/uL (0.04-0.35); Eosinophils % (A) 0 %; HCT 34.8 % (37.2-46.3); HGB 11.6 g/dL (12.0-15.0); Lymphocytes # (A) 0.67 X 10*3/uL (0.90-5.00); Lymphocytes % (A) 6.1 %; MCH 32.6 pg (27.0-32.0); MCHC 33.3 g/dL (32.0-37.0); MCV 97.8 FL (80.0-97.0); Mean Platelet Volume 11.9 FL (9.5-12.2); Monocytes # (A) 0.48 X 10*3/uL (0.20-1.00); Monocytes % (A) 4.4 %; NRBC Per 100 WBC 0 X 10*3/uL (0.00-0.01); Neutrophils # (A) 9.77 X 10*3/uL (1.80-7.70); Neutrophils % (A) 88.9 %; Platelet Count 209 X 10*3/uL (140-440); RBC 3.56 X 10*6/uL (4.10-5.20); RDW 13.2 % (11.5-14.5); WBC 10.98 X 10*3/uL (4.50-10.00)
[2024-09-09] MEDS: IPRATROPIUM-ALBUTEROL 3 ML NEB INHALATION SCH (08:21)
[2024-09-09] MEDS: SYMBICORT 80-4.5 MCG INHALER INHALATION SCH (08:21)
[2024-09-09 08:42] LABS: Magnesium 1.8 mg/dL (1.5-2.4)
[2024-09-09 09:04] LABS: ALT 889 U/L (8-44); AST 827 U/L (13-35); Albumin 3.4 g/dL (3.8-4.9); Albumin/Globulin Ratio 1.55 Ratio (1.60-3.17); Alkaline Phosphatase 168 U/L (41-126); Blood Urea Nitrogen 15.3 mg/dL (9.0-27.0); Calcium 8.4 mg/dL (8.7-10.3); Carbon Dioxide 25.1 mmol/L (21.6-31.8); Chloride 102 mmol/L (96-109); Globulin 2.2 g/dL (1.6-3.3); Glucose 144 mg/dL (70-110); Potassium 4.4 mmol/L (3.5-5.5); Sodium 137 mmol/L (135-145); Total Bilirubin 0.8 mg/dL (0.3-1.2); Total Protein 5.6 g/dL (6.2-8.2)
--- NOTE | 2024-09-09 14:05 | P.PN ---
Subjective Progress Note Date: 09/09/24 Hospital course: Patient is a very pleasant 84-year-old female with a past medical history of asthma with COPD, vertigo, atrial tachycardia on metoprolol, hyperlipidemia, and osteoarthritis. She presented to the emergency department secondary to fall at home. Patient reports she has been intermittently struggling with her vertigo and that when she bent over in the bathroom today and stood up she fell to the floor landing on her left hip. Patient denies hitting her head or having any loss of consciousness but did report severe pain to her left hip and lower leg immediately and family called EMS for transport to the hospital. Upon arrival to our facility, patient underwent evaluation in the emergency department. Vital signs upon arrival show blood pressure 149/69, heart rate 61, respiratory rate 20, temp 98.4 F, and SpO2 of 95% on room air. Patient's oxygen saturations did desaturate to 90% after receiving morphine and was placed on 2 L O2 via nasal cannula. EKG completed showing sinus bradycardia at 58 bpm with T wave inversion in leads V2 and V3 and no noted ST abnormality showing no signs of acute ischemia upon personal review and interpretation. Chest x-ray completed showing COPD with mild cardiomegaly. CT head showing mild cerebral atrophy with mild to moderate patchy burden of chronic small vessel ischemic changes but negative for acute intracranial abnormality. CT cervical spine negative for acute fracture of the cervical spine revealing moderate spondylitic changes. CT also revealing possible acute left sphenoid sinusitis, however patient asymptomatic and denies having any sinus pressure/pain, nasal drainage, or headache. X-ray left hip and pelvis showing osteopenia with a subcapital left femoral neck fracture with proximal displacement. Labs completed and reviewed. CBC unremarkable. Coagulation profile normal findings. BMP showing mild hypercarbia with bicarb of 33 otherwise normal findings. Blood glucose was 132. Liver profile unremarkable. Patient admitted under orthopedic surgery team and we were consulted for medical management throughout hospitalization. Physical exam: Vital signs reviewed and stable. General: Nontoxic, no distress and appears stated age. Derm: Skin warm and dry, normal coloration for ethnicity. Head: Atraumatic, normocephalic and symmetric. Eyes: EOM's intact, no lid lag, and anicteric sclera Mouth: no lip lesions, mucus membranes moist Cardiovascular: regular rate and rhythm with normal S1S2, soft systolic murmur, positive posterior tibial pulses bilaterally, and cap refill < 2 seconds. Lungs: Respirations even, regular, and unlabored on room air. Lungs CTA bilaterally, no rhonchi, no rales, no wheezing, and no accessory muscle usage. Abdominal: soft, nontender to palpation, no guarding, no appreciable organome mark Ext: No gross muscle atrophy, no edema, no contractures. Sensation intact. Patient with left lower extremity external rotation and shortening. She is able to wiggle and move toes without difficulties. Neuro: Speech clear, face symmetrical and CN II-XII grossly intact with no noted focal neuro deficits Psych: Alert and oriented to person, place, time, and situation. Appropriate and pleasant affect. Assessment and Plan of Care: Left displaced femoral neck fracture -Management per primary admitting orthopedic surgery team including DVT prophylaxis, pain management, weightbearing, and PT/OT. -Patient to remain on strict bedrest pending advancement of activity by orthopedic surgery team. -Patient reports morphine 4 mg was too strong and family at bedside also expressing concern. Patient did desaturate slightly after receiving 4 mg. Decreased dose of morphine at 2 mg every 3 hours as needed for breakthrough pain. -Order placed for Green catheter secondary to prolonged immobility. Acute Transaminitis -Liver enzymes acutely elevated status post fall will obtain a CT abdomen and pelvis to ensure no further injuries. Patient asymptomatic denies right upper quadrant pain. Transaminitis likely reactive secondary to stress from femur fracture. Discussed with orthopedic surgery PA and pt to have CT abdomen and pelvis completed prior to planned surgery later today. -Ofirmev discontinued amd Atorvastatin held at this time. -Will continue to monitor closely with repeat a.m. labs. Preoperative clearance -NSQIP surgical risk calculator score was completed. Patient is at an above average risk to undergo planned left hip hemiarthroplasty with an above average risk of 3.7% for serious complication with average risk being 3.6%, above average risk for cardiac complication at 0.4% with average risk being 0.3%, and an above average risk of at 0.4% with average risk being 0.2%. -Pulmonary consult was placed for pulmonary clearance secondary to patient's underlying COPD and current need for oxygen supplementation. Pulmonary evaluated clearing patient from pulmonary perspective to undergo planned surgical procedure. -Patient is at an above average risk to undergo planned surgical intervention, however due to urgent need for surgical repair of left hip fracture and increased risk of mortality and delaying surgery there are no absolute contraindications for patient to undergo surgery from a medical standpoint at this time. Asthma with COPD -Patient follows with Dr. Martínez outpatient denies home oxygen use. -Currently requiring 2 L supplemental oxygen after receiving morphine for pain management. -Continue Trelegy Ellipta inhaler 1 puff daily (secondary to hospital availability supplement with Symbicort 80-4.5 mcg inhaler 2 puffs twice daily and Atrovent nebulizer 4 times daily) -Pulmonary was consulted for surgical clearance and clearing patient from pulmonary perspective stating no pulmonary contraindications for patient to undergo planned surgery. -Incentive spirometry 10-15 times hourly while awake. Vertigo -Patient does report struggling with vertigo off and on for a while now but states this has been ongoing and only upon standing or quick position changes. Suspect underlying orthostatic hypotension based upon reported symptoms, however unable to complete orthostatic vitals at this time as patient is on strict bedrest at this time. Therefore further evaluation will need to be completed at a later date. Patient denies dizziness/lightheadedness at rest. History of atrial tachycardia, currently maintaining normal sinus rhythm -Continue metoprolol 25 mg twice daily. Hyperlipidemia -Continue daily medication regimen with Zetia 10 mg nightly and Crestor 5 mg every other day. Data and imaging reviewed: Labs reviewed. CBC showing macrocytic anemia with hemoglobin of 11.6 and MCV of 97.8. BMP unremarkable. Blood glucose 144. Magnesium 1.8. Liver profile showing acute transaminitis with AST of 827, ALT of 889, and alkaline phos phatase of 168. Vital signs reviewed. Blood pressure 134/68, heart rate 81, respiratory rate 17, temp 98.0 F, and SpO2 of 93% on 2 L. Thank you for allowing us to participate in the care of this pleasant patient. Do not hesitate to contact us with questions. Someone can be reached from the [facility] hospitalist group all hours of the day at [phone] or via [employer] serve. Patient was seen independently by Nurse Practitioner. This document was prepared using [employer] dictation software. Please allow for errors in diamond die maker while rare they do occur. Vlad Stanford NP rendered care for this patient independently, reviewed the findings and plan as documented in the note above and agree with plan. I did not physically speak with or examine the patient on this date. Objective - Vital Signs Vital signs: Vital Signs Temp 98.5 F 09/09/24 07:07 Pulse 84 09/09/24 08:36 Resp 18 09/09/24 07:07 BP 135/72 09/09/24 07:07 Pulse Ox 96 09/09/24 07:07 FiO2 Intake & Output 09/08/24 09/09/24 09/09/24 18:59 06:59 18:59 Output Total 400 Balance -400 Weight 58.06 kg Output: Urine 400 Other: Voiding Method External Catheter # Voids 1 - Labs CBC & Chem 7: 09/09/24 04:45 09/09/24 04:45 Labs: Abnormal Lab Results - Last 24 Hours (Table) 09/08/24 09/08/24 09/09/24 Range/Units 07:53 08:11 04:45 WBC 10.98 H (4.50-10.00) X 10*3/uL RBC 3.56 L (4.10-5.20) X 10*6/uL Hgb 11.6 L (12.0-15.0) g/dL Hct 34.8 L (37.2-46.3) % MCV 97.8 H (80.0-97.0) FL MCH 32.6 H (27.0-32.0) pg Immature Gran # 0.05 H (0.00-0.04) X 10*3/uL Neutrophils # 9.77 H (1.80-7.70) X 10*3/uL Lymphocytes # 0.67 L (0.90-5.00) X 10*3/uL Eosinophils # 0 L (0.04-0.35) X 10*3/uL Sodium 136 L (137-145) mmol/L Carbon Dioxide 33 H (22-30) mmol/L Glucose 132 H (74-99) mg/dL Urine Protein Trace H (Negative) Urine Ketones 1+ H (Negative) Urine Opiates Screen Detected H (NotDetected)
--- NOTE | 2024-09-09 14:36 | CT ---
EXAMINATION TYPE: CT abdomen pelvis wo con DATE OF EXAM: 09/09/2024 COMPARISON: CT chest abdomen pelvis dated 07/03/2024 CLINICAL INDICATION: Female, 84 years old with history of Transaminitis status post fall; PHH, Elevat ed liver enzymes after fall. TECHNIQUE: CT scan of the abdomen and pelvis is performed without oral or IV contrast. CT DLP: [address] CTDI: mGy Automated exposure control for dose reduction was used. FINDINGS: Within the limitations of a non-contrast study, the following observations are made. There are mild pleural parenchymal interstitial changes in the lung bases. There is no pneumonic infi ltrate. There is a small hiatal hernia. There is surgical absence of the gallbladder. Common bile duct is dilated to 2 cm. There is no defini te pancreatic head mass. ERCP may be indicated as patient. There is no focal mass or organomegaly inv olving the pancreas, spleen, liver or adrenal glands. There are no renal calcifications or hydronephrosis. The caliber of the abdominal aorta is normal and there is no retroperitoneal adenopathy or hemorrhage . The bowel loops are normal in caliber is no evidence of obstruction. No inflammatory changes are iden tified in the mesentery and there is no free intraperitoneal air or fluid. There is no pelvic mass, free fluid, abscess or adenopathy. There is surgical absence of uterus. Ther e is a Green catheter in the urinary bladder. The osseous structures and soft tissues are unremarkable. IMPRESSION: 1. Small hiatal hernia. 2. Cholecystectomy. 3. Biliary ductal dilatation. The common bile duct is 2 cm. There is no pancreatic head mass. ERCP ma y be indicated in this patient. 4. No bowel obstruction, free intraperitoneal air or fluid. [facility], , 09/09/2024 2:33 PM
[2024-09-09] MEDS: IV FLUID CONTINUATION 1,000 ML IV ONE (15:30)
--- NOTE | 2024-09-09 15:39 | US ---
EXAMINATION TYPE: US liver DATE OF EXAM: 09/09/2024 COMPARISON: CT 09/09/2024 CLINICAL INDICATION: Female, 84 years old with history of transaminitis, biliary ductal dilation; Tra nsaminitis, biliary ductal dilation. Hx cholecystectomy. TECHNIQUE: Grayscale and color Doppler imaging of the right upper quadrant. FINDINGS: EXAM MEASUREMENTS: Liver Length: 14.8 cm Gallbladder Wall: Cholecystectomy CBD: 1.5 cm, color Doppler imaging was utilized to isolate the common bile duct for measurement. Right Kidney: 10.4 x 5.4 x 3.8 cm BINGO FLOATER NOTES: *Exam is limited due to gas. Pancreas: Tail is obscured. No abnormalities seen. Liver: Suspected cyst measuring 1.5 cm and the left lobe. Internal echoes could be artifactual or co uld represent debris. Gallbladder: Cholecystectomy Evidence for sonographic Chris's sign: No CBD: *Dilated Right Kidney: No hydronephrosis or masses seen Payer Specialist notes: Possible abdominal wall defect seen midline epigastric area: 0.8 cm. Movement seen upon valsalva ma neuver. The entire hypoechoic area of movement measures 1.8 x 2.0 x 1.4 cm. IMPRESSION: 1. Small ventral epigastric midline omental fat-containing hernia measuring 2.0 cm wide and extending through a 8 mm narrow neck. 2. Status post cholecystectomy. The bile duct is frankly dilated up to 1.5 cm. Possibly chronic for t he patient. Correlate with alkaline phosphatase and bilirubin levels to exclude biliary obstruction. [facility], , 09/09/2024 3:37 PM
[2024-09-09] MEDS: ONDANSETRON 4 MG/2 ML VIAL IVP PRN (15:59)
[2024-09-09] MEDS: ROPIVACAINE 5 MG/ML 30 ML VIAL MISCELLANE ONE ×2 (16:04→17:33)
[2024-09-09 16:13] LABS: INR 1.1 (<1.2); Partial Thromboplastin Time 22.4 sec (22.0-30.0); Prothrombin Time 11.6 sec (10.0-12.5)
[2024-09-09] MEDS: MIDAZOLAM 2 MG/2 ML VIAL IV ONE (16:18)
--- NOTE | 2024-09-09 16:43 | P.ANPRN ---
Procedure Note - Anesthesia - Nerve Block Performed Left Nitesh Single Time Out Performed: Yes Date of Procedure: 09/09/24 Procedure Start Time: 16:19 Procedure Stop Time: : Location of Patient: PreOp Indication: Acute Post-Operative Pain, Requested by Surgeon Sedation Type: Sedate with meaningful contact maintained Preparation: Sterile Prep, Sterile Dressing (30 ml + decadron 4 mg) Position: Supine Catheter: None Needle Types: Facet Needle Gauge: 20 Ultrasound used to visualize needle placement: Yes Ultrasound used to observe medication spread: Yes Injectate: 0.5% Ropivacaine (see comment for volume) Blood Aspirated: No Pain Paresthesia on Injection Noted: No Resistance on Injection: Normal Image Stored and Saved: Yes Events: Uneventful and Well Tolerated
[2024-09-09] MEDS ORDERED: TRANEXAMIC 1,000 MG/100ML-NACL PREMIX BAG ONE (16:47)
[2024-09-09] MEDS ORDERED: DEXAMETHASONE SOD PHOSPHATE 4 MG/ML 1 ML VIAL ONE (16:47)
[2024-09-09] MEDS ORDERED: fentaNYL (PF) 50 MCG/ML 2 ML AMP ONE (16:47)
[2024-09-09] MEDS ORDERED: ROPIVACAINE 5 MG/ML 30 ML VIAL ONE (16:47)
[2024-09-09] MEDS ORDERED: LIDOCAINE 1% INJ 10MG/ML (20 ML MDV) ONE (16:47)
[2024-09-09] MEDS ORDERED: ePHEDrine 50 MG/ML 1 ML VIAL ONE (16:47)
[2024-09-09] MEDS ORDERED: PROPOFOL 10 MG/ML 20 ML VIAL IV ONE (16:47)
[2024-09-09] MEDS ORDERED: SUCCINYLCHOLINE CHLORIDE 200 MG/10 ML VIAL IV ONE (16:47)
[2024-09-09] MEDS ORDERED: PHENYLEPHRINE-0.9% NACL SYG 1,000 MCG/10 ML SYRINGE ONE (16:47)
[2024-09-09] MEDS ORDERED: MIDAZOLAM 2 MG/2 ML VIAL ONE (16:47)
[2024-09-09] MEDS ORDERED: KETAMINE HCL IN 0.9 % NACL 50 MG/5 ML SYRINGE ONE (16:47)
[2024-09-09] MEDS: SODIUM CHLORIDE 0.9% 50 ML with ceFAZolin 2,000 MG IV ONE (16:52)
[2024-09-09] MEDS: ceFAZolin 1,000 MG in SODIUM CHLORIDE 0.9% 1,000 ML IRRIGATION ONE (17:36)
[2024-09-09] MEDS ORDERED: HYDROcodone/APAP 5-325MG 1 EACH TAB PO PRN (18:18)
[2024-09-09] MEDS ORDERED: MAGNESIUM HYDROXIDE 2,400 MG/30 ML CUP PO PRN (18:18)
[2024-09-09] MEDS ORDERED: TEMAZEPAM 15 MG CAP PO PRN (18:18)
[2024-09-09] MEDS ORDERED: NALOXONE 0.4 MG/ML 1 ML VIAL IV PRN (18:18)
--- NOTE | 2024-09-09 18:23 | P.OP ---
Date of Procedure: 09/09/24 Preoperative Diagnosis: Subcapital fracture left hip Postoperative Diagnosis: Subcapital fracture left hip Procedure(s) Performed: Left hip hemiarthroplasty with a direct anterior approach Implants: Meza and nephew Polarstem size 3 standard with a collar Meza [employer] Nephew tandem unipolar, 42 mm Meza [employer] Nephew tandem unipolar 12/14 taper sleeve, -3 mm All components were press-fit. Anesthesia: spinal Surgeon: Jose Arvizu Estimated Blood Loss (ml): 100 Pathology: none sent Condition: stable Disposition: PACU Indications for Procedure: This is an 84-year-old female sustained a ground-level fall. X-rays demonstrated displaced subcapital fracture of her left hip. After discussing the surgical nonsurgical treatment options with her at length, she wishes to proceed with a left hip hemiarthroplasty with a direct anterior approach. Informed consent was obtained. Operative Findings: The operative findings are consistent with a displaced subcapital fracture of the left hip. Description of Procedure: Patient was seen and evaluated in the preoperative area, consent was reviewed and the operative site was marked with a skin marker. Patient was then brought to the operating room and given 2 g of Ancef intravenously. A spinal anesthetic was administered by the anesthesia department. Patient was then placed in a lateral decubitus position and held with a Montral hip positioner. The bony prominences were well-padded and an axillary roll was placed. The hip was then prepped and draped in the usual sterile fashion. A universal timeout was then performed which confirmed the patient's name, surgical site, ALLERGIES, and procedure. A standard anterolateral approach the hip was performed. Skin and subcutaneous tissues were sharply incised with an incision centered over the tip of the greater trochanter. The incision was carefully dissected down to the fascia. The fascia was then split in line with skin incision and a Charnley retractor was gently placed. The abductors were then identified, and the anterior one third of the abductors were released off the trochanter and one large sleeve. The fracture hematoma was evacuated and the proximal femur was exposed by externally rotating the femur. The fracture site was readily visualized. Next, using an osteotomy guide, the proximal femur was osteotomized at the appropriate level of the above the lesser trochanter. This bone was then removed. Attention was then turned to the femoral head. Using a corkscrew, the femoral head was removed from the acetabulum without incident. The acetabulum was inspected, and found to have no significant arthrosis. Femoral head was then measured. Attention was then redirected to the femur. Proximal femur was re-exposed and a box osteotome was used to lateralize the proximal femur. A merchandise collector was then used to locate the femoral canal. Sequential broaching was then performed to the appropriate size. The calcar was then planed and trial head and neck were placed. The hip was then gently reduced. Leg lengths were checked and found to be equal. Hip was then taken through a full range of motion was stable throughout. The hip was then gently dislocated with the aid of a bone hook. The trial head and neck were then removed. The femoral broach was then inspected and found to have a secure fit. The broach was then removed. The hip was then copiously irrigated with antibiotic solution with a pulse lavage. Components were then opened and the femoral stem was then impacted into the proximal femur. The trunnion was cleaned and dried, and the femoral head and neck were then impacted. Hip was again gently reduced. Again leg lengths were checked and found to be equal, and the hip was taken through a full range of motion and found to be stable. The hip was again irrigated with pulsatile lavage, then followed by the Irrrisept solution. The abductors were then repaired through drill holes to the bone to the greater trochanter, utilizing #5 Ethibond suture. Next the fascia was repaired with #2 strata fix suture. The subcutaneous tissue was then repaired with 3-0 Vicryl. The subcuticular tissue was then repaired with 3-0 monocryl suture. Skin was then closed with Exofin skin glue. A sterile dressing was then applied and the patient was transported to the recovery room in stable condition.
--- NOTE | 2024-09-09 18:46 | FL ---
EXAMINATION TYPE: FL guidance operating room, XR Hip Limited LT DATE OF EXAM: 09/09/2024 CLINICAL HISTORY: Left hip fracture. TECHNIQUE: Fluoroscopy. Intraoperative limited views left hip. COMPARISON: Pelvic and left hip x-ray on the earlier FINDINGS: Fluoroscopic guidance was provided during left hip replacement procedure performed by Dr. Arvizu. A total of 36.2 seconds of fluoroscopic time was utilized during the procedure and 2 spot intraoperative images are acquired. Intraoperative images acquired show metallic hardware in satisfactory position on frontal projection. IMPRESSION: As Above. TOTAL DAP = 1.1131 Gy x cm2. [facility], , 09/09/2024 6:44 PM
[2024-09-09] MEDS: SENNOSIDES-DOCUSATE SODIUM 1 EACH TAB PO SCH (22:21)
[2024-09-09] MEDS: ASPIRIN 325 MG TAB PO SCH (22:21)
[2024-09-09] MEDS: ACETAMINOPHEN TAB 325 MG TAB PO STA (23:34)
[2024-09-10 03:18] LABS: Hepatitis A Antibody IgM Nonreactive (Nonreactive); Hepatitis B Core IgM Nonreactive (Nonreactive); Hepatitis B Surface Antigen Nonreactive (Nonreactive); Hepatitis C IgG Antibody Nonreactive (Nonreactive)
[2024-09-10 09:05] LABS: Basophils # (A) 0.01 X 10*3/uL (0.00-0.10); Basophils % (A) 0.1 %; Eosinophils # (A) 0 X 10*3/uL (0.04-0.35); Eosinophils % (A) 0 %; HCT 33.5 % (37.2-46.3); Lymphocytes # (A) 0.55 X 10*3/uL (0.90-5.00); Lymphocytes % (A) 6.2 %; MCH 32.2 pg (27.0-32.0); MCHC 32.8 g/dL (32.0-37.0); Monocytes # (A) 0.31 X 10*3/uL (0.20-1.00); Monocytes % (A) 3.5 %; NRBC Per 100 WBC 0 X 10*3/uL (0.00-0.01); Neutrophils # (A) 7.95 X 10*3/uL (1.80-7.70); Neutrophils % (A) 89.7 %; Platelet Count 186 X 10*3/uL (140-440); RBC 3.42 X 10*6/uL (4.10-5.20); RDW 13.5 % (11.5-14.5); WBC 8.86 X 10*3/uL (4.50-10.00)
[2024-09-10 09:40] LABS: Magnesium 1.9 mg/dL (1.5-2.4)
[2024-09-10 09:47] LABS: ALT 571 U/L (8-44); AST 329 U/L (13-35); Albumin 3.2 g/dL (3.8-4.9); Albumin/Globulin Ratio 1.52 Ratio (1.60-3.17); Alkaline Phosphatase 162 U/L (41-126); Blood Urea Nitrogen 17.7 mg/dL (9.0-27.0); Calcium 8.4 mg/dL (8.7-10.3); Carbon Dioxide 26.3 mmol/L (21.6-31.8); Chloride 101 mmol/L (96-109); Globulin 2.1 g/dL (1.6-3.3); Glucose 154 mg/dL (70-110); Potassium 4.6 mmol/L (3.5-5.5); Sodium 135 mmol/L (135-145); Total Bilirubin 0.4 mg/dL (0.3-1.2); Total Protein 5.3 g/dL (6.2-8.2)
[2024-09-10] MEDS: HYDROcodone/APAP 5-325MG 1 EACH TAB PO PRN (11:12)
--- NOTE | 2024-09-10 11:49 | P.CONS ---
History of Present Illness - Reason for Consult Consult date: 09/10/24 Biliary ductal dilation, transaminitis Requesting physician: Vlad Stanford - Chief Complaint Fall, fractured hip - History of Present Illness This is a pleasant 84-year-old female who presented to the emergency department on 09/08/2024 after sustaining a fall and having left hip pain. Patient was noted to have a left hip fracture on admission. Yesterday she was scheduled for surgery with orthopedics. She had labs done with notable elevation in her LFTs and gastroenterology was consulted. Past medical history includes gallbladder cancer status post cholecystectomy without any need for radiation or chemotherapy, asthma, COPD, hyperlipidemia and osteoarthritis. Patient states she has been having dizziness and she went to bend over and when she stood up she got very dizzy and she had fallen. Patient said she thought it was secondary to vertigo. Blood pressures have been stable with no evidence of hypotension here in the hospital. Admitting labs patient's total bilirubin 0.8 AST 157 ALT 57 alkaline phosphatase 60 lipase 160, then the following day her AST ALT and alkaline phosphatase significantly increased. Yesterday's LFTs total bilirubin 0.8 AST 827 ALT 889 alkaline phosphatase 168. SHe denies any history of liver disease, no known history of elevated LFTs as well as no history of any alcoholism. Patient states she had followed with oncology for quite some time and has had several scans without any concerns of malignancy. She denies any new medications other than Trelegy that was started 3 months ago. Patient was started on acetaminophen IV for pain management during this hospitalization however that was discontinued and acetaminophen level was less than 10. Hepatitis panel was nonreactive, repeat labs are trending down today. Total bilirubin 0.4 AST 329 ALT 571 and alkaline phosphatase 162. She denies any abdominal pain no epigastric pain, no nausea or vomiting. She did undergo left hip arthroplasty yesterday. Review of Systems REVIEW OF SYSTEMS: CARDIOPULMONARY: No chest pain or shortness of breath. Gastrointestinal: No abdominal pain. No nausea or vomiting. No hematemesis, coffee-ground emesis. No rectal bleeding, or melena. GENITOURINARY: No dysuria or hematuria. MUSCULOSKELETAL: Fall 2 days ago with hip pain, status post left hip arthroplasty SKIN: No rashes. No jaundice. ENDOCRINE: No chills, fevers. No excessive weight gain or loss. No polydipsia or polyuria. PSYCHIATRIC: Unremarkable. NEUROLOGY: No change in mental status. Patient has been having complaints of positional dizziness. ENT: Vision unremarkable. CONSTITUTIONAL: No recent weight loss. No fever, chills, night sweats. Past Medical History Past Medical History: Asthma, COPD, Hyperlipidemia, Osteoarthritis (OA) Additional Past Medical History / Comment(s): tachycardia History of Any Multi-Drug Resistant Organisms: None Reported Past Surgical History: Hysterectomy Past Anesthesia/Blood Transfusion Reactions: No Reported Reaction Past Psychological History: No Psychological Hx Reported Smoking Status: Never smoker Past Alcohol Use History: None Reported Past Drug Use History: None Reported - Past Family History Mother Additional Family Medical History / Comment(s): heart disease Father Family Medical History: Cancer Medications and Allergies Home Medications Medication Instructions Recorded Confirmed Type Ezetimibe [Zetia] 10 mg PO Q2D@2100 12/06/22 09/08/24 History Metoprolol Tartrate [Lopressor] 25 mg PO BID 12/06/22 09/08/24 History Fluticasone/Umeclidin/Vilanter 1 puff INHALATION RT-DAILY 09/08/24 09/08/24 History [Trelegy Ellipta 100-62.5-25] Rosuvastatin Calcium [Crestor] 5 mg PO Q2D@2100 09/08/24 09/08/24 History Allergies Allergy/AdvReac Type Severity Reaction Status Date / Time [id number] Reductase AdvReac muscle Verified 09/08/24 09:58 Inhibitor cramps Physical Exam Vitals: Vital Signs Temp Pulse Pulse Pulse Pulse Resp BP 09/10/24 07:47 98.9 F 56 L 16 131/61 09/09/24 22:01 98 147/73 09/09/24 21:44 88 124/69 09/09/24 21:29 92 129/73 09/09/24 21:14 87 122/69 09/09/24 20:59 91 138/68 09/09/24 20:44 99 152/72 09/09/24 20:29 92 129/73 09/09/24 20:25 98.3 F 93 14 148/86 09/09/24 20:14 92 133/71 09/09/24 19:15 89 16 127/59 09/09/24 19:00 92 16 126/60 09/09/24 18:45 89 18 133/67 09/09/24 18:30 97.3 F L 88 21 146/67 09/09/24 16:27 85 16 134/61 09/09/24 15:30 98.1 F 92 16 171/77 09/09/24 12:10 98.0 F 81 17 134/68 09/09/24 12:04 76 09/09/24 11:47 72 09/09/24 08:36 84 09/09/24 08:21 84 Pulse Ox 09/10/24 07:47 96 09/09/24 22:01 09/09/24 21:44 09/09/24 21:29 09/09/24 21:14 09/09/24 20:59 09/09/24 20:44 09/09/24 20:29 09/09/24 20:25 91 L 09/09/24 20:14 09/09/24 19:15 94 L 09/09/24 19:00 94 L 09/09/24 18:45 95 09/09/24 18:30 99 09/09/24 16:27 97 09/09/24 15:30 98 09/09/24 12:10 93 L 09/09/24 12:04 09/09/24 11:47 09/09/24 08:36 09/09/24 08:21 Intake and Output 09/09/24 09/10/24 09/10/24 22:59 06:59 14:59 Intake Total 451 120 Output Total 100 225 Balance 351 -105 Intake: IV 451 Oral 120 Output: Urine 225 Estimated Blood Loss 100 General appearance: The patient is alert, oriented, appears in no acute distre ss. HET: Head is normocephalic and atraumatic. Conjunctiva pink. Sclera anicteric. Neck: Supple without lymphadenopathy. Trachea midline. Heart: Regular. Lungs: Equal expansion, normal respiratory effort. Abdomen: Soft, nontender, nondistended. Skin: No rashes. No jaundice. Extremities: Normal skin color and turgor. No pedal edema. Neurological: No focal deficits. Alert and oriented x3. Results CBC & Chem 7: 09/10/24 03:28 09/10/24 03:28 Labs: Abnormal Lab Results - Last 24 Hours (Table) 01/08/25 01/08/25 Range/Units 04:45 04:45 WBC 10.98 H (4.50-10.00) X 10*3/uL RBC 3.56 L (4.10-5.20) X 10*6/uL Hgb 11.6 L (12.0-15.0) g/dL Hct 34.8 L (37.2-46.3) % MCV 97.8 H (80.0-97.0) FL MCH 32.6 H (27.0-32.0) pg Immature Gran # 0.05 H (0.00-0.04) X 10*3/uL Neutrophils # 9.77 H (1.80-7.70) X 10*3/uL Lymphocytes # 0.67 L (0.90-5.00) X 10*3/uL Eosinophils # 0 L (0.04-0.35) X 10*3/uL Creatinine 0.5 L (0.6-1.5) mg/dL BUN/Creatinine Ratio 30.60 H (12.00-20.00) Ratio Glucose 144 H (70-110) mg/dL Calcium 8.4 L (8.7-10.3) mg/dL AST 827 H (13-35) U/L ALT 889 H (8-44) U/L Alkaline Phosphatase 168 H (41-126) U/L Total Protein 5.6 L (6.2-8.2) g/dL Albumin 3.4 L (3.8-4.9) g/dL Albumin/Globulin Ratio 1.55 L (1.60-3.17) Ratio Comments: CT abdomen pelvis without contrast reports small hiatal hernia. Cholecystectomy. Biliary ductal dilation. Common bile duct is 2 cm. There is no pancreatic head mass. ERCP may be indicated in this patient. No bowel obstruction, free intraperitoneal air or fluid. Liver ultrasound report small ventral epigastric midline omental fat-containing hernia measuring 2.0 cm wide and extending through a 8 mm narrow neck. Status postcholecystectomy. Bile duct is frankly dilated up to 1.5 cm. Possibly chronic for the patient. Correlate with alkaline phosphatase and bilirubin levels to exclude biliary obstruction. Assessment and Plan (1) Elevated LFTs Narrative/Plan: 84-year-old female who had presented after having a fall secondary to bending over and becoming very dizzy. She was admitted with a fractured left hip with impending surgery. Initially LFTs were all normal with a significant increase in repeat yesterday. She did have a CT of the abdomen pelvis showing dilated CBD however patient is status post cholecystectomy with diagnosis following of gallbladder cancer. She is asymptomatic not having any abdominal pain, nausea or vomiting. Likely we are not dealing with a CBD obstruction as well as labs or not in a cholestatic pattern. No episodes of hypotension here in the hospital. Possible secondary to acute injury and possible orthostatic hypotension causing acute ischemic hepatitis. LFTs improving. Acetaminophen level was drawn as patient had been started on IV acetaminophen on admission however acetaminophen level was normal. Hepatitis panel nonreactive. If LFTs continue to trend down no further workup indicated. Current Visit: Yes Status: Acute Code(s): R79.89 - OTHER SPECIFIED ABNORMAL FINDINGS OF BLOOD CHEMISTRY SNOMED Code(s): 396860382 (2) Fall Current Visit: Yes Status: Acute Code(s): W19.XXXA - UNSPECIFIED FALL, INITIAL ENCOUNTER SNOMED Code(s): 2202346 (3) Fracture of femoral neck, left Current Visit: Yes Status: Acute Code(s): S72.002A - FRACTURE OF UNSP PART OF NECK OF LEFT FEMUR, INIT SNOMED Code(s): 8361810 Plan: 1. Continue symptomatic and supportive care 2. Daily CMP 3. Acetaminophen level ordered, normal 4. Hepatitis panel ordered, nonreactive 6. CT abdomen pelvis and ultrasound reviewed 7. No further workup from gastroenterology at this time, will continue to trend LFTs 8. Avoid hepatotoxic medications Thank you for this consultation, we will continue to follow. Dr. Kadie Tavares I agree with the dictator's note, documented as a scribe by Cristy Luna.
--- NOTE | 2024-09-10 16:28 | P.PN ---
Subjective Progress Note Date: 09/10/24 Hospital Course: Patient is a very pleasant 84-year-old female with a past medical history of a sthma with COPD, vertigo, atrial tachycardia on metoprolol, hyperlipidemia, and osteoarthritis. She presented to the emergency department secondary to fall at home. Patient reports she has been intermittently struggling with her vertigo and that when she bent over in the bathroom today and stood up she fell to the floor landing on her left hip. Patient denies hitting her head or having any loss of consciousness but did report severe pain to her left hip and lower leg immediately and family called EMS for transport to the hospital. Upon arrival to our facility, patient underwent evaluation in the emergency department. Vital signs upon arrival show blood pressure 149/69, heart rate 61, respiratory rate 20, temp 98.4 F, and SpO2 of 95% on room air. Patient's oxygen saturations did desaturate to 90% after receiving morphine and was placed on 2 L O2 via nasal cannula. EKG completed showing sinus bradycardia at 58 bpm with T wave inversion in leads V2 and V3 and no noted ST abnormality showing no signs of acute ischemia upon personal review and interpretation. Chest x-ray complete d showing COPD with mild cardiomegaly. CT head showing mild cerebral atrophy with mild to moderate patchy burden of chronic small vessel ischemic changes but negative for acute intracranial abnormality. CT cervical spine negative for acute fracture of the cervical spine revealing moderate spondylitic changes. CT also revealing possible acute left sphenoid sinusitis, however patient asymptomatic and denies having any sinus pressure/pain, nasal drainage, or headache. X-ray left hip and pelvis showing osteopenia with a subcapital left femoral neck fracture with proximal displacement. Labs completed and reviewed. CBC unremarkable. Coagulation profile normal findings. BMP showing mild hyp ercarbia with bicarb of 33 otherwise normal findings. Blood glucose was 132. Liver profile unremarkable. Patient admitted under orthopedic surgery team and we were consulted for medical management throughout hospitalization. 09/09 liver enzymes were noted to be acutely elevated. Patient asymptomatic with no right upper quadrant discomfort/pain. CT showing biliary ductal dilation of 2 cm. GI stating they are in agreement that transaminitis is likely reactive and biliary ductal dilation of 2 cm is likely an incidental finding. Gastroenterology recommending patient proceed with planned left hip hemiarthroplasty. Acetaminophen level ordered, pending, hepatitis panel ordered and nonreactive. Continue to trend LFTs, avoid hepatotoxins. Patient was taken for left hip hemiarthroplasty with direct anterior approach on 09/09/2024, tolerated procedure well, started ambulating on 09/10/2024, pain is adequately controlled. CBC stable postop, AST ALT trending down significantly, kidney function normal Pertinent Imaging: CT abdomen as mentioned above Subjective: Feels better today, able to ambulate, pain is adequately controlled, okay to discontinue Green Pertinent positives and negatives as discussed above, a complete review of systems was performed and all other systems are negative. Vitals Signs Reviewed. General: [nontoxic], [no distress], [appears at stated age] Derm: [warm], [dry] Head: [atraumatic], [normocephalic], [symmetric] Eyes: [EOMI], [no lid lag], [anicteric sclera] Mouth: [no lip lesion], [mucus membranes moist] Cardiovascular: [S1S2 reg], [no murmur] Lungs: [CTA bilateral], [no rhonchi, no rales] , [no accessory muscle use] Abdominal: [soft], [ nontender to palpation], [no guarding], [no appreciable organomegaly] Ext: [no gross muscle atrophy], [no edema], [no contractures], postop dressing clean and dry Neuro: [ CN II-XI grossly intact], [no focal neuro deficits] Psych: [Alert], [oriented], [appropriate affect] Data Reviewed Today: Pertinent Labs: As mentioned above Assessment and Plan: Left displaced femoral neck fracture hospitalist hemiarthroplasty 09/09 -Management per primary admitting orthopedic surgery team including DVT prophylaxis, pain management, weightbearing, and PT/OT. -Okay to DC Green Acute Transaminitis dilated CBD 2 cm -GI consulted: . Acetaminophen level ordered, pending, hepatitis panel ordered and nonreactive. Continue to trend LFTs, avoid hepatotoxins. -Ofirmev discontinued amd Atorvastatin held at this time. -Will continue to monitor closely with repeat a.m. labs. Asthma with COPD -Patient follows with Dr. Martínez outpatient denies home oxygen use. -on RA -Continue Trelegy Ellipta inhaler 1 puff daily (secondary to hospital availability supplement with Symbicort 80-4.5 mcg inhaler 2 puffs twice daily and Atrovent nebulizer 4 times daily) -Pulmonary was consulted for surgical clearance and clearing patient from pulmonary perspective stating no pulmonary contraindications for patient to undergo planned surgery. -Incentive spirometry 10-15 times hourly while awake. Vertigo -Patient does report struggling with vertigo off and on for a while now but states this has been ongoing and only upon standing or quick position changes. Suspect underlying orthostatic hypotension based upon reported symptoms, however unable to complete orthostatic vitals at this time as patient is on strict bedrest at this time. Therefore further evaluation will need to be completed at a later date. Patient denies dizziness/lightheadedness at rest. History of atrial tachycardia, currently maintaining normal sinus rhythm -Continue metoprolol 25 mg twice daily. Hyperlipidemia -on Zetia 10 mg nightly and Crestor 5 mg every other day.Ofirmev discontinued amd Atorvastatin held at this time Objective - Vital Signs Vital signs: Vital Signs Temp 98 F 09/10/24 14:58 Pulse 87 09/10/24 14:58 Resp 17 09/10/24 14:58 BP 140/77 09/10/24 14:58 Pulse Ox 94 L 09/10/24 14:58 FiO2 Intake & Output 09/09/24 09/10/24 09/10/24 18:59 06:59 18:59 Intake Total 451 120 Output Total 100 225 Balance 351 -105 Intake: IV 451 Oral 120 Output: Urine 225 Estimated Blood Loss 100 Other: Voiding Method Indwelling Catheter Indwelling Catheter - Labs CBC & Chem 7: 09/10/24 03:28 09/10/24 03:28 Labs: Abnormal Lab Results - Last 24 Hours (Table) 09/10/24 09/10/24 Range/Units 03:28 03:28 RBC 3.42 L (4.10-5.20) X 10*6/uL Hgb 11.0 L (12.0-15.0) g/dL Hct 33.5 L (37.2-46.3) % MCV 98.0 H (80.0-97.0) FL MCH 32.2 H (27.0-32.0) pg Neutrophils # 7.95 H (1.80-7.70) X 10*3/uL Lymphocytes # 0.55 L (0.90-5.00) X 10*3/uL Eosinophils # 0 L (0.04-0.35) X 10*3/uL Creatinine 0.5 L (0.6-1.5) mg/dL BUN/Creatinine Ratio 35.40 H (12.00-20.00) Ratio Glucose 154 H (70-110) mg/dL Calcium 8.4 L (8.7-10.3) mg/dL AST 329 H (13-35) U/L ALT 571 H (8-44) U/L Alkaline Phosphatase 162 H (41-126) U/L Total Protein 5.3 L (6.2-8.2) g/dL Albumin 3.2 L (3.8-4.9) g/dL Albumin/Globulin Ratio 1.52 L (1.60-3.17) Ratio
--- NOTE | 2024-09-10 17:13 | P.PN ---
Subjective Progress Note Date: 09/10/24 This is an 84-year-old female who is status post left hip hemiarthroplasty with direct anterior approach. This is postoperative day #1 and patient is seen and evaluated at bedside today. Patient states that her pain is well-controlled and she was able to stand and walk with physical therapy today. Objective - Vital Signs Vital signs: Vital Signs Temp 98 F 09/10/24 14:58 Pulse 87 09/10/24 14:58 Resp 17 09/10/24 14:58 BP 140/77 09/10/24 14:58 Pulse Ox 94 L 09/10/24 14:58 FiO2 Intake & Output 09/09/24 09/10/24 09/10/24 18:59 06:59 18:59 Intake Total 451 120 Output Total 100 225 Balance 351 -105 Intake: IV 451 Oral 120 Output: Urine 225 Estimated Blood Loss 100 Other: Voiding Method Indwelling Catheter Indwelling Catheter - Exam Vital signs are stable. Patient is in no acute distress and is alert and oriented 3. Calf is soft and nontender to palpation. Dressing is clean, dry, and intact. Patient has full foot and ankle motion without pain or difficulty. Sensation intact. Neurovascular status and circulatory status are intact. - Labs CBC & Chem 7: 09/10/24 03:28 09/10/24 03:28 Labs: Abnormal Lab Results - Last 24 Hours (Table) 09/10/24 09/10/24 Range/Units 03:28 03:28 RBC 3.42 L (4.10-5.20) X 10*6/uL Hgb 11.0 L (12.0-15.0) g/dL Hct 33.5 L (37.2-46.3) % MCV 98.0 H (80.0-97.0) FL MCH 32.2 H (27.0-32.0) pg Neutrophils # 7.95 H (1.80-7.70) X 10*3/uL Lymphocytes # 0.55 L (0.90-5.00) X 10*3/uL Eosinophils # 0 L (0.04-0.35) X 10*3/uL Creatinine 0.5 L (0.6-1.5) mg/dL BUN/Creatinine Ratio 35.40 H (12.00-20.00) Ratio Glucose 154 H (70-110) mg/dL Calcium 8.4 L (8.7-10.3) mg/dL AST 329 H (13-35) U/L ALT 571 H (8-44) U/L Alkaline Phosphatase 162 H (41-126) U/L Total Protein 5.3 L (6.2-8.2) g/dL Albumin 3.2 L (3.8-4.9) g/dL Albumin/Globulin Ratio 1.52 L (1.60-3.17) Ratio Assessment and Plan (1) Fall Current Visit: Yes Status: Acute Code(s): W19.XXXA - UNSPECIFIED FALL, IN ITIAL ENCOUNTER SNOMED Code(s): 8600986 (2) Fracture of femoral neck, left Current Visit: Yes Status: Acute Code(s): S72.002A - FRACTURE OF UNSP PART OF NECK OF LEFT FEMUR, INIT SNOMED Code(s): 2282871 Plan: Continue routine postop care and pain control. Continue anticoagulation. Weightbearing as tolerated with a walker. Leave dressing in place for 7 days. Appreciate input from internal medicine. Anticipate discharge to [facility] in the next 24-48 hours.
--- NOTE | 2024-09-10 17:57 | P.PN ---
Subjective Progress Note Date: 09/10/24 Patient presented emergency department yesterday morning after having a fall at home. Having episodes of vertigo/dizziness over the last several weeks. 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 Following this could not move her left leg without severe pain. Denies losing consciousness or head trauma. Brought to the emergency department yesterday morning by EMS. X- ray of the left hip showing osteopenia with a subcapital left femoral neck fracture showing some proximal displacement. We are consulted for preoperative pulmonary clearance. Patient has history of moderate COPD. Has an FEV1 55% of predicted. Utilizes combination of Trelegy maintenance inhaler as well as albuterols nebs twice daily. She has never smoked tobacco products. Chest CT done July, which showed resolution of previously seen 9 mm left apical pulmonary nodule. Redemonstration of scattered peripheral and reticular nodular opacities with some demonstration and tree-in-bud morphology. Favored to represent chronic bronchiectatic changes. Patient also has past medical history significant for hypertension, hyperlipidemia, and gallbladder CA with previous cholecystectomy. Brain and neck CT did not show any intracranial hemorrhage or mass effect. No cervical spine fracture or subluxation. CBC unremarkable, hemoglobin 13.1 g/dL. CMP was also unremarkable. Patient is currently being evaluated on the general medical floor. She is alert and oriented. She is currently resting fairly comfortably in bed. Continues to have left hip pain. Neurovascular status of the lower extremity intact. She is on 2 L/min nasal cannula. Denies shortness of breath, and is in no respiratory distress. Denies any infectious symptoms. No change in her chronic cough. States that her COPD h as been fairly well-controlled after starting her Trelegy inhaler 3 months ago. Chest x-ray on arrival showing cardiomegaly, and chronic interstitial changes may be slightly more prominent from previous. Focal patchy right midlung airspace opacity unchanged. Current vital signs: Temperature 98.7 F, heart rate 82 bpm, blood pressure 138/79 mmHg, nontachypneic, SpO2 reading 94% on 2 L/min nasal cannula. On 09/10/2024, the patient is postop day #1 following a sub-L fracture related left hip hemiarthroplasty. The patient is on room air oxygen. The patient sitting up in a chair with a pulse ox of 94% room air oxygen. She is using incentive spirometer. She is on Symbicort and DuoNeb nebulized treatments and she is receiving Dilaudid for pain control. She remains on lactated ringer at rate of 20 cc an hour. No new complaints otherwise for now. White cell count of 8.8 with a hemoglobin 11 and electrolytes are all within normal limits. She does have some mild transaminitis which is essentially improving. The serum albumin is at 3.2 with a protein of 5.3. Viral screen was negative. No nausea. No emesis. No other specific complaints otherwise for now. The patient's pain is under well control and the patient is able to stand and walk with physical therapy. Objective - Vital Signs Vital signs: Vital Signs Temp 98.9 F 09/10/24 07:47 Pulse 82 09/10/24 09:58 Resp 16 09/10/24 07:47 BP 131/61 09/10/24 07:47 Pulse Ox 95 09/10/24 09:50 FiO2 Intake & Output 09/09/24 09/10/24 09/10/24 18:59 06:59 18:59 Intake Total 451 120 Output Total 100 225 Balance 351 -105 Intake: IV 451 Oral 120 Output: Urine 225 Estimated Blood Loss 100 Other: Voiding Method Indwelling Catheter - Exam GENERAL EXAM: Alert, 84-year-old female, laying in a supine position, comfortable in no apparent distress. Patient is currently on room air oxygen HEAD: Normocephalic and atraumatic EYES: Normal reaction of pupils, equal size. NOSE: Clear with pink turbinates. THROAT: No erythema or exudates. NECK: No masses, no JVD. CHEST: No chest wall deformity. LUNGS: Equal air entry with no crackles, wheeze, rhonchi or dullness. On 2 L/min nasal cannula. No conversational dyspnea or accessory muscle use.. CVS: S1 and S2 normal with no audible murmur, regular rhythm. No extra heart sounds ABDOMEN: No hepatosplenomegaly, active bowel sounds, no guarding or rigidity. SPINE: No scoliosis or deformity SKIN: No rashes CENTRAL NERVOUS SYSTEM: No focal deficits, tone is normal in all 4 extremities. EXTREMITIES: There is no peripheral edema, clubbing, or cyanosis. Peripheral pulses are intact. Left lower extremity movement limited by pain. Sensation and distal range of motion is intact. Peripheral pulses intact. - Labs CBC & Chem 7: 09/10/24 03:28 09/10/24 03:28 Labs: Abnormal Lab Results - Last 24 Hours (Table) 09/10/24 09/10/24 Range/Units 03:28 03:28 RBC 3.42 L (4.10-5.20) X 10*6/uL Hgb 11.0 L (12.0-15.0) g/dL Hct 33.5 L (37.2-46.3) % MCV 98.0 H (80.0-97.0) FL MCH 32.2 H (27.0-32.0) pg Neutrophils # 7.95 H (1.80-7.70) X 10*3/uL Lymphocytes # 0.55 L (0.90-5.00) X 10*3/uL Eosinophils # 0 L (0.04-0.35) X 10*3/uL Creatinine 0.5 L (0.6-1.5) mg/dL BUN/Creatinine Ratio 35.40 H (12.00-20.00) Ratio Glucose 154 H (70-110) mg/dL Calcium 8.4 L (8.7-10.3) mg/dL AST 329 H (13-35) U/L ALT 571 H (8-44) U/L Alkaline Phosphatase 162 H (41-126) U/L Total Protein 5.3 L (6.2-8.2) g/dL Albumin 3.2 L (3.8-4.9) g/dL Albumin/Globulin Ratio 1.52 L (1.60-3.17) Ratio Assessment and Plan Assessment: Fall, sustaining displaced subcapital left femoral neck fracture. Patient is status post left hip hemiarthroplasty, postop day #1. Moderate chronic obstructive pulmonary disease, with an FEV1 55% of predicted, currently inactive and stable History of mild intermittent asthma Lifelong non-smoker Hypertension History of hyperlipidemia History of gallbladder cancer and previous cholecystectomy Plan: From a pulmonary standpoint, the patient remains stable on room air oxygen. Her COPD/asthma appears stable and inactive. Continue supplemental oxygen to maintain oxygen saturation of 92% or greater Encouraged use of incentive spirometer Continue combination of Symbicort inhaler and DuoNebs [id number]. May substitute for Trelegy inhaler if made available. We will continue to follow
--- NOTE | 2024-09-11 08:37 | P.PN ---
Subjective Progress Note Date: 09/11/24 Principal diagnosis: Elevated LFTs This is a pleasant 84-year-old female who presented to the emergency department on 09/08/2024 after sustaining a fall and having left hip pain. Patient was noted to have a left hip fracture on admission. Yesterday she was scheduled for surgery with orthopedics. She had labs done with notable elevation in her LFTs and gastroenterology was consulted. Past medical history includes gallbladder cancer status post cholecystectomy without any need for radiation or chemotherapy, asthma, COPD, hyperlipidemia and osteoarthritis. Patient states s he has been having dizziness and she went to bend over and when she stood up she got very dizzy and she had fallen. Patient said she thought it was secondary to vertigo. Blood pressures have been stable with no evidence of hypotension here in the hospital. Admitting labs patient's total bilirubin 0.8 AST 157 ALT 57 alkaline phosphatase 60 lipase 160, then the following day her AST ALT and erik line phosphatase significantly increased. Yesterday's LFTs total bilirubin 0.8 AST 827 ALT 889 alkaline phosphatase 168. SHe denies any history of liver disease, no known history of elevated LFTs as well as no history of any alcoholism. Patient states she had followed with oncology for quite some time and has had several scans without any concerns of malignancy. She denies any new medications other than Trelegy that was started 3 months ago. Patient was started on acetaminophen IV for pain management during this hospitalization however that was discontinued and acetaminophen level was less than 10. Hepatitis panel was nonreactive, repeat labs are trending down today. Total bilirubin 0.4 AST 329 ALT 571 and alkaline phosphatase 162. She denies any abdominal pain no epigastric pain, no nausea or vomiting. She did undergo left hip arthroplasty yesterday. 09/11/2024 Patient seen and examined today as a follow-up. She continues to have no abdominal pain, epigastric abdominal pain nausea or vomiting. LFTs have started to trend down. Today's labs are currently pending. Objective - Vital Signs Vital signs: Vital Signs Temp 98.3 F 09/11/24 01:57 Pulse 84 09/11/24 01:57 Resp 12 09/11/24 01:57 BP 132/75 09/11/24 01:57 Pulse Ox 93 L 09/11/24 01:57 FiO2 Intake & Output 09/10/24 09/10/24 09/11/24 06:59 18:59 06:59 Intake Total 120 1080 540 Output Total 225 Balance -105 1080 540 Intake: Oral 120 1080 540 Output: Urine 225 Other: Voiding Method Indwelling Catheter External Catheter # Voids 2 - Exam General appearance: The patient is alert, oriented, appears in no acute distress. HET: Head is normocephalic and atraumatic. Conjunctiva pink. Sclera anicteric. Neck: Supple without lymphadenopathy. Abdomen: Soft, nontender, nondistended. Extremities: Normal skin color and turgor. No pedal edema Skin: No rashes, no jaundice Neurological: No focal deficits. Alert and oriented. - Labs CBC & Chem 7: 09/10/24 03:28 09/10/24 03:28 Labs: Abnormal Lab Results - Last 24 Hours (Table) 09/10/24 09/10/24 Range/Units 03:28 03:28 RBC 3.42 L (4.10-5.20) X 10*6/uL Hgb 11.0 L (12.0-15.0) g/dL Hct 33.5 L (37.2-46.3) % MCV 98.0 H (80.0-97.0) FL MCH 32.2 H (27.0-32.0) pg Neutrophils # 7.95 H (1.80-7.70) X 10*3/uL Lymphocytes # 0.55 L (0.90-5.00) X 10*3/uL Eosinophils # 0 L (0.04-0.35) X 10*3/uL Creatinine 0.5 L (0.6-1.5) mg/dL BUN/Creatinine Ratio 35.40 H (12.00-20.00) Ratio Glucose 154 H (70-110) mg/dL Calcium 8.4 L (8.7-10.3) mg/dL AST 329 H (13-35) U/L ALT 571 H (8-44) U/L Alkaline Phosphatase 162 H (41-126) U/L Total Protein 5.3 L (6.2-8.2) g/dL Albumin 3.2 L (3.8-4.9) g/dL Albumin/Globulin Ratio 1.52 L (1.60-3.17) Ratio Assessment and Plan (1) Elevated LFTs Narrative/Plan: 84-year-old female who had presented after having a fall secondary to bending over and becoming very dizzy. She was admitted with a fractured left hip with impending surgery. Initially LFTs were all normal with a significant increase in repeat yesterday. She did have a CT of the abdomen pelvis showing dilated CBD however patient is status post cholecystectomy with diagnosis following of gallbladder cancer. She is asymptomatic not having any abdominal pain, nausea or vomiting. Likely we are not dealing with a CBD obstruction as well as labs or not in a cholestatic pattern. Acute hepatitis unclear etiology possible acute ischemic hepatitis due to possible orthostatic hypotension. LFTs are trending down. Acetaminophen level was normal hepatitis panel nonreactive. No further workup indicated at this time. Current Visit: Yes Status: Acute Code(s): R79.89 - OTHER SPECIFIED ABNORMAL FINDINGS OF BLOOD CHEMISTRY SNOMED Code(s): 993759152 (2) Fall Current Visit: Yes Status: Acute Code(s): W19.XXXA - UNSPECIFIED FALL, INITIAL ENCOUNTER SNOMED Code(s): 5903940 (3) Fracture of femoral neck, left Current Visit: Yes Status: Acute Code(s): S72.002A - FRACTURE OF UNSP PART OF NECK OF LEFT FEMUR, INIT SNOMED Code(s): 6826926 Plan: 1. Continue symptomatic and supportive care 2. Daily CMP 3. Acetaminophen level ordered, normal 4. Hepatitis panel ordered, nonreactive 6. CT abdomen pelvis and ultrasound reviewed 7. No further workup from gastroenterology at this time 8. Avoid hepatotoxic medications 9. Continue to trend LFTs outpatient, can follow-up with gastroenterology as needed. Thank you for allowing us to participate in the care of the patient, the GI service will sign off, gastroenterology will not be available at the hospital this weekend and through next week. If further evaluation by gastroenterology is required the patient will need transfer as per the primary team's discretion. Dr. Kadie Tavares I agree with the dictator's note, documented as a scribe by Cristy Luna.
[2024-09-11 09:07] LABS: Lipase 10 U/L (14-63)
[2024-09-11 09:09] LABS: ALT 268 U/L (8-44); AST 120 U/L (13-35); Albumin 3.1 g/dL (3.8-4.9); Albumin/Globulin Ratio 1.63 Ratio (1.60-3.17); Alkaline Phosphatase 129 U/L (41-126); Calcium 8.2 mg/dL (8.7-10.3); Carbon Dioxide 26.6 mmol/L (21.6-31.8); Chloride 102 mmol/L (96-109); Globulin 1.9 g/dL (1.6-3.3); Glucose 90 mg/dL (70-110); Potassium 4.2 mmol/L (3.5-5.5); Sodium 137 mmol/L (135-145); Total Bilirubin 0.4 mg/dL (0.3-1.2)
--- NOTE | 2024-09-11 15:01 | P.PN ---
Subjective Progress Note Date: 09/11/24 Hospital Course: Patient is a very pleasant 84-year-old female with a past medical history of a sthma with COPD, vertigo, atrial tachycardia on metoprolol, hyperlipidemia, and osteoarthritis. She presented to the emergency department secondary to fall at home. Patient reports she has been intermittently struggling with her vertigo and that when she bent over in the bathroom today and stood up she fell to the floor landing on her left hip. Patient denies hitting her head or having any loss of consciousness but did report severe pain to her left hip and lower leg immediately and family called EMS for transport to the hospital. Upon arrival to our facility, patient underwent evaluation in the emergency department. Vital signs upon arrival show blood pressure 149/69, heart rate 61, respiratory rate 20, temp 98.4 F, and SpO2 of 95% on room air. Patient's oxygen saturations did desaturate to 90% after receiving morphine and was placed on 2 L O2 via nasal cannula. EKG completed showing sinus bradycardia at 58 bpm with T wave inversion in leads V2 and V3 and no noted ST abnormality showing no signs of acute ischemia upon personal review and interpretation. Chest x-ray complete d showing COPD with mild cardiomegaly. CT head showing mild cerebral atrophy with mild to moderate patchy burden of chronic small vessel ischemic changes but negative for acute intracranial abnormality. CT cervical spine negative for acute fracture of the cervical spine revealing moderate spondylitic changes. CT also revealing possible acute left sphenoid sinusitis, however patient asymptomatic and denies having any sinus pressure/pain, nasal drainage, or headache. X-ray left hip and pelvis showing osteopenia with a subcapital left femoral neck fracture with proximal displacement. Labs completed and reviewed. CBC unremarkable. Coagulation profile normal findings. BMP showing mild hyp ercarbia with bicarb of 33 otherwise normal findings. Blood glucose was 132. Liver profile unremarkable. Patient admitted under orthopedic surgery team and we were consulted for medical management throughout hospitalization. 09/09 liver enzymes were noted to be acutely elevated. Patient asymptomatic with no right upper quadrant discomfort/pain. CT showing biliary ductal dilation of 2 cm. GI stating they are in agreement that transaminitis is likely reactive and biliary ductal dilation of 2 cm is likely an incidental finding. Gastroenterology recommending patient proceed with planned left hip hemiarthroplasty. Acetaminophen level ordered, pending, hepatitis panel ordered and nonreactive. Continue to trend LFTs, avoid hepatotoxins. Patient was taken for left hip hemiarthroplasty with direct anterior approach on 09/09/2024, tolerated procedure well, started ambulating on 09/10/2024, pain is adequately controlled. CBC stable postop, AST ALT trending down significantly, kidney function normal. Acetaminophen levels normal, hepatitis panel negative, GI signed off, recommended to follow-up with liver enzymes after discharge. Patient is medically cleared from IM standpoint Subjective: Feels good today, was ambulating down the hallway, pain is well-controlled Pertinent positives and negatives as discussed above, a complete review of systems was performed and all other systems are negative. Vitals Signs Reviewed. General: [nontoxic], [no distress], [appears at stated age] Derm: [warm], [dry] Head: [atraumatic], [normocephalic], [symmetric] Eyes: [EOMI], [no lid lag], [anicteric sclera] Mouth: [no lip lesion], [mucus membranes moist] Cardiovascular: [S1S2 reg], [no murmur] Lungs: [CTA bilateral], [no rhonchi, no rales] , [no accessory muscle use] Abdominal: [soft], [ nontender to palpation], [no guarding], [no appreciable organomegaly] Ext: [no gross muscle atrophy], [no edema], [no contractures], postop dressing clean and dry Neuro: [ CN II-XI grossly intact], [no focal neuro deficits] Psych: [Alert], [oriented], [appropriate affect] Pertinent lab: Hemoglobin stable 11.0, no leukocytosis, platelet count normal, creatinine WNL, AST and ALT trending down Assessment and Plan: Left displaced femoral neck fracture hospitalist hemiarthroplasty 09/09 -Management per primary admitting orthopedic surgery team including DVT prophylaxis, pain management, weightbearing, and PT/OT. -Cleared for discharge from IM standpoint Acute Transaminitis dilated CBD 2 cm -GI consulted: . Acetaminophen level negative, hepatitis panel nonreactive, GI and send of, can follow-up as needed, needs to monitor LFTs -Ofirmev discontinued amd Atorvastatin held at this time. May resume at discharge -If patient is not discharged due to pending insurance authorization, can repeat CMP in a.m. -Medically cleared for discharge Asthma with COPD -Patient follows with Dr. Martínez outpatient denies home oxygen use. -on RA -Continue Trelegy Ellipta inhaler 1 puff daily (secondary to hospital availability supplement with Symbicort 80-4.5 mcg inhaler 2 puffs twice daily and Atrovent nebulizer 4 times daily) -Pulmonary was consulted for surgical clearance and clearing patient from pulmonary perspective stating no pulmonary contraindications for patient to undergo planned surgery. -Incentive spirometry 10-15 times hourly while awake. Vertigo -Patient does report struggling with vertigo off and on for a while now but states this has been ongoing and only upon standing or quick position changes. Suspect underlying orthostatic hypotension based upon reported symptoms, however unable to complete orthostatic vitals at this time as patient is on strict bedrest at this time. Therefore further evaluation will need to be completed at a later date. Patient denies dizziness/lightheadedness at rest. History of atrial tachycardia, currently maintaining normal sinus rhythm -Continue metoprolol 25 mg twice daily. Hyperlipidemia -on Zetia 10 mg nightly and Crestor 5 mg every other day.Ofirmev discontinued amd Atorvastatin held at this time, may resume at discharge Objective - Vital Signs Vital signs: Vital Signs Temp 98.4 F 09/11/24 12:48 Pulse 84 09/11/24 12:48 Resp 17 09/11/24 12:48 BP 137/72 09/11/24 12:48 Pulse Ox 95 09/11/24 12:48 FiO2 Intake & Output 09/10/24 09/11/24 09/11/24 18:59 06:59 18:59 Intake Total 1080 540 Balance 1080 540 Intake: Oral 1080 540 Other: Voiding Method Indwelling Catheter External Catheter # Voids 2 - Labs CBC & Chem 7: 09/10/24 03:28 09/11/24 04:12 Labs: Abnormal Lab Results - Last 24 Hours (Table) 09/11/24 Range/Units 04:12 Creatinine 0.5 L (0.6-1.5) mg/dL BUN/Creatinine Ratio 32.00 H (12.00-20.00) Ratio Calcium 8.2 L (8.7-10.3) mg/dL AST 120 H (13-35) U/L ALT 268 H (8-44) U/L Alkaline Phosphatase 129 H (41-126) U/L Total Protein 5.0 L (6.2-8.2) g/dL Albumin 3.1 L (3.8-4.9) g/dL Lipase 10 L (14-63) U/L
--- NOTE | 2024-09-11 16:40 | P.PN ---
Subjective Progress Note Date: 09/11/24 Patient presented emergency department yesterday morning after having a fall at home. Having episodes of vertigo/dizziness over the last several weeks. 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 Following this could not move her left leg without severe pain. Denies losing consciousness or head trauma. Brought to the emergency department yesterday morning by EMS. X- ray of the left hip showing osteopenia with a subcapital left femoral neck fracture showing some proximal displacement. We are consulted for preoperative pulmonary clearance. Patient has history of moderate COPD. Has an FEV1 55% of predicted. Utilizes combination of Trelegy maintenance inhaler as well as albuterols nebs twice daily. She has never smoked tobacco products. Chest CT done July, which showed resolution of previously seen 9 mm left apical pulmonary nodule. Redemonstration of scattered peripheral and reticular nodular opacities with some demonstration and tree-in-bud morphology. Favored to represent chronic bronchiectatic changes. Patient also has past medical history significant for hypertension, hyperlipidemia, and gallbladder CA with previous cholecystectomy. Brain and neck CT did not show any intracranial hemorrhage or mass effect. No cervical spine fracture or subluxation. CBC unremarkable, hemoglobin 13.1 g/dL. CMP was also unremarkable. Patient is currently being evaluated on the general medical floor. She is alert and oriented. She is currently resting fairly comfortably in bed. Continues to have left hip pain. Neurovascular status of the lower extremity intact. She is on 2 L/min nasal cannula. Denies shortness of breath, and is in no respiratory distress. Denies any infectious symptoms. No change in her chronic cough. States that her COPD h as been fairly well-controlled after starting her Trelegy inhaler 3 months ago. Chest x-ray on arrival showing cardiomegaly, and chronic interstitial changes may be slightly more prominent from previous. Focal patchy right midlung airspace opacity unchanged. Current vital signs: Temperature 98.7 F, heart rate 82 bpm, blood pressure 138/79 mmHg, nontachypneic, SpO2 reading 94% on 2 L/min nasal cannula. On 09/10/2024, the patient is postop day #1 following a sub-L fracture related left hip hemiarthroplasty. The patient is on room air oxygen. The patient sitting up in a chair with a pulse ox of 94% room air oxygen. She is using incentive spirometer. She is on Symbicort and DuoNeb nebulized treatments and she is receiving Dilaudid for pain control. She remains on lactated ringer at rate of 20 cc an hour. No new complaints otherwise for now. White cell count of 8.8 with a hemoglobin 11 and electrolytes are all within normal limits. She does have some mild transaminitis which is essentially improving. The serum albumin is at 3.2 with a protein of 5.3. Viral screen was negative. No nausea. No emesis. No other specific complaints otherwise for now. The patient's pain is under well control and the patient is able to stand and walk with physical therapy. On 09/11/2024, the patient is doing well. She is ambulating with the help of physical therapy. She is weightbearing at this point. No respiratory difficulties and her respiratory status remained stable. The patient is currently on room air oxygen. She is using incentive spirometer. Surgical sites are clean and intact. The BUN is 16 with a creatinine of 0.5. Rest of the electrolytes are all within normal limits. No other significant events overnight. Objective - Vital Signs Vital signs: Vital Signs Temp 98.4 F 09/11/24 12:48 Pulse 84 09/11/24 12:48 Resp 17 09/11/24 12:48 BP 137/72 09/11/24 12:48 Pulse Ox 95 09/11/24 12:48 FiO2 Intake & Output 09/10/24 09/11/24 09/11/24 18:59 06:59 18:59 Intake Total 1080 540 Balance 1080 540 Intake: Oral 1080 540 Other: Voiding Method Indwelling Catheter External Catheter # Voids 2 - Exam GENERAL EXAM: Alert, 84-year-old female, laying in a supine position, comfortable in no apparent distress. Patient is currently on room air oxygen HEAD: Normocephalic and atraumatic EYES: Normal reaction of pupils, equal size. NOSE: Clear with pink turbinates. THROAT: No erythema or exudates. NECK: No masses, no JVD. CHEST: No chest wall deformity. LUNGS: Equal air entry with no crackles, wheeze, rhonchi or dullness. On 2 L/min nasal cannula. No conversational dyspnea or accessory muscle use.. CVS: S1 and S2 normal with no audible murmur, regular rhythm. No extra heart sounds ABDOMEN: No hepatosplenomegaly, active bowel sounds, no guarding or rigidity. SPINE: No scoliosis or deformity SKIN: No rashes CENTRAL NERVOUS SYSTEM: No focal deficits, tone is normal in all 4 extremities. EXTREMITIES: There is no peripheral edema, clubbing, or cyanosis. Peripheral pulses are intact. Left lower extremity movement limited by pain. Sensation and distal range of motion is intact. Peripheral pulses intact. - Labs CBC & Chem 7: 09/10/24 03:28 09/11/24 04:12 Labs: Abnormal Lab Results - Last 24 Hours (Table) 09/11/24 Range/Units 04:12 Creatinine 0.5 L (0.6-1.5) mg/dL BUN/Creatinine Ratio 32.00 H (12.00-20.00) Ratio Calcium 8.2 L (8.7-10.3) mg/dL AST 120 H (13-35) U/L ALT 268 H (8-44) U/L Alkaline Phosphatase 129 H (41-126) U/L Total Protein 5.0 L (6.2-8.2) g/dL Albumin 3.1 L (3.8-4.9) g/dL Lipase 10 L (14-63) U/L Assessment and Plan Assessment: Fall, sustaining displaced subcapital left femoral neck fracture. Patient is status post left hip hemiarthroplasty, postop day #2 Moderate chronic obstructive pulmonary disease, with an FEV1 55% of predicted, currently inactive and stable History of mild intermittent asthma Lifelong non-smoker Hypertension History of hyperlipidemia History of gallbladder cancer and previous cholecystectomy Plan: Clinically stable Ambulating No respiratory distress From a pulmonary standpoint, the patient remains stable on room air oxygen. Her COPD/asthma appears stable and inactive. Continue supplemental oxygen to maintain oxygen saturation of 92% or greater Encouraged use of incentive spirometer Continue combination of Symbicort inhaler and DuoNebs [id number]. May substitute for Trelegy inhaler if made available. We will continue to follow
[2024-09-12 04:22] VITALS: RESP 14
[2024-09-12 08:10] VITALS: BP 157/77; TEMP 98.8
[2024-09-12 09:06] LABS: ALT 201 U/L (4-34); AST 69 U/L (14-36); African American GFR (CKD) >90 (>60 ml/min/1.73 sqM); Albumin 2.7 g/dL (3.5-5.0); Albumin/Globulin Ratio 1.2; Alkaline Phosphatase 113 U/L (38-126); Anion Gap 4 mmol/L; Blood Urea Nitrogen 13 mg/dL (7-17); Calcium 8.3 mg/dL (8.4-10.2); Carbon Dioxide 29 mmol/L (22-30); Chloride 102 mmol/L (98-107); Globulin 2.3 g/dL; Glucose 92 mg/dL (74-99); Non-African American GFR(CKD) 88 (>60 ml/min/1.73 sqM); Potassium 4.2 mmol/L (3.5-5.1); Sodium 135 mmol/L (137-145); Total Bilirubin 0.3 mg/dL (0.2-1.3)
--- NOTE | 2024-09-12 09:09 | P.DS ---
Providers Date of admission: 09/08/24 09:28 Expected date of discharge: 09/11/24 Attending physician: Jose Arvizu Consults: 09/08/24 09:25 Consult Physician Routine Consulting Provider: Uriel Nguyen Consult Reason/Comments: medical mangement Do you want consulting provider notified?: Yes 09/08/24 17:34 Consult Physician Urgent Consulting Provider: Rodrigo Castaneda Consult Reason/Comments: pulmonary clearance for sx, hx of COPD follows Nickolas Do you want consulting provider notified?: Yes 09/09/24 14:40 Consult Physician Routine Consulting Provider: Annika Tavares Consult Reason/Comments: biliary ductal dilation, transaminitis Do you want consulting provider notified?: Yes Primary care physician: uGerita Olmos - Discharge Diagnosis(es) (1) Fall Current Visit: Yes Status: Acute (2) Fracture of femoral neck, left Current Visit: Yes Status: Acute Hospital Course: This is an 84-year-old female who sustained a fracture of her left hip after a fall. The patient presented for evaluation in the emergency room where x-rays revealed a subcapital fracture of the left hip. After discussion and consideration patient elects to proceed with left hip hemiarthroplasty with direct anterior approach. The patient is seen preoperatively by Dr. Arvizu and medically cleared for surgery by internal medicine. Patient is admitted to [facility] on 09/08/2024 and left hip hemiarthroplasty with direct anterior approach is performed on 09/09/2024. The procedure is performed without complication or sequelae. The patient is doing well postoperatively. Labs and vital signs are stable on day of discharge. Patient was also seen and evaluated by gastroenterology during this admission and will be followed on an outpatient basis. On day of discharge patient's hip incision is healing well. There is minimal erythema. There is no drainage noted at this time. There is minimal soft tissue swelling to the hip and thigh. Patient has full foot and ankle motion without difficulty or pain. Calf is soft and nontender to palpation. Neurovascular status to the left lower extremity is intact. Patient is discharged to rehab in good condition. Please see med rec for accurate list of home medications. Patient Condition at Discharge: Stable Plan - Discharge Summary Discharge Rx Participant: Yes New Discharge Prescriptions: No Action Fluticasone/Umeclidin/Vilanter [Trelegy Ellipta 100-62.5-25] 1 puff INHALATION RT-DAILY Metoprolol Tartrate [Lopressor] 25 mg PO BID Ezetimibe [Zetia] 10 mg PO Q2D@2099 Rosuvastatin Calcium [Crestor] 5 mg PO Q2D@2099 Discharge Medication List Ezetimibe [Zetia] 10 mg PO Q2D@209912/06/22 [History] Metoprolol Tartrate [Lopressor] 25 mg PO BID 12/06/22 [History] Fluticasone/Umeclidin/Vilanter [Trelegy Ellipta 100-62.5-25] 1 puff INHALATION RT-DAILY 09/08/24 [History] Rosuvastatin Calcium [Crestor] 5 mg PO Q2D@209909/08/24 [History] Follow up Appointment(s)/Referral(s): Guerita Olmos MD [Primary Care Provider] - 1-2 days
[2024-09-12 10:24] LABS: Basophils # (A) 0.05 X 10*3/uL (0.00-0.10); Basophils % (A) 0.7 %; Eosinophils # (A) 0.23 X 10*3/uL (0.04-0.35); Eosinophils % (A) 3.1 %; HGB 10.4 g/dL (12.0-15.0); Lymphocytes % (A) 22.5 %; MCH 32.1 pg (27.0-32.0); MCHC 33.5 g/dL (32.0-37.0); MCV 95.7 FL (80.0-97.0); Mean Platelet Volume 11.8 FL (9.5-12.2); Monocytes # (A) 0.81 X 10*3/uL (0.20-1.00); Monocytes % (A) 10.7 %; NRBC Per 100 WBC 0 X 10*3/uL (0.00-0.01); Neutrophils # (A) 4.72 X 10*3/uL (1.80-7.70); Neutrophils % (A) 62.6 %; Platelet Count 196 X 10*3/uL (140-440); RBC 3.24 X 10*6/uL (4.10-5.20); RDW 13.9 % (11.5-14.5); WBC 7.54 X 10*3/uL (4.50-10.00)
--- NOTE | 2024-09-12 11:49 | P.PN ---
Subjective Progress Note Date: 09/12/24 Hospital Course: Patient is a very pleasant 84-year-old female with a past medical history of a sthma with COPD, vertigo, atrial tachycardia on metoprolol, hyperlipidemia, and osteoarthritis. She presented to the emergency department secondary to fall at home. Patient reports she has been intermittently struggling with her vertigo and that when she bent over in the bathroom today and stood up she fell to the floor landing on her left hip. Patient denies hitting her head or having any loss of consciousness but did report severe pain to her left hip and lower leg immediately and family called EMS for transport to the hospital. Upon arrival to our facility, patient underwent evaluation in the emergency department. Vital signs upon arrival show blood pressure 149/69, heart rate 61, respiratory rate 20, temp 98.4 F, and SpO2 of 95% on room air. Patient's oxygen saturations did desaturate to 90% after receiving morphine and was placed on 2 L O2 via nasal cannula. EKG completed showing sinus bradycardia at 58 bpm with T wave inversion in leads V2 and V3 and no noted ST abnormality showing no signs of acute ischemia upon personal review and interpretation. Chest x-ray complete d showing COPD with mild cardiomegaly. CT head showing mild cerebral atrophy with mild to moderate patchy burden of chronic small vessel ischemic changes but negative for acute intracranial abnormality. CT cervical spine negative for acute fracture of the cervical spine revealing moderate spondylitic changes. CT also revealing possible acute left sphenoid sinusitis, however patient asymptomatic and denies having any sinus pressure/pain, nasal drainage, or headache. X-ray left hip and pelvis showing osteopenia with a subcapital left femoral neck fracture with proximal displacement. Labs completed and reviewed. CBC unremarkable. Coagulation profile normal findings. BMP showing mild hyp ercarbia with bicarb of 33 otherwise normal findings. Blood glucose was 132. Liver profile unremarkable. Patient admitted under orthopedic surgery team and we were consulted for medical management throughout hospitalization. 09/09 liver enzymes were noted to be acutely elevated. Patient asymptomatic with no right upper quadrant discomfort/pain. CT showing biliary ductal dilation of 2 cm. GI stating they are in agreement that transaminitis is likely reactive and biliary ductal dilation of 2 cm is likely an incidental finding. Gastroenterology recommending patient proceed with planned left hip hemiarthroplasty. Acetaminophen level ordered, pending, hepatitis panel ordered and nonreactive. Continue to trend LFTs, avoid hepatotoxins. Patient was taken for left hip hemiarthroplasty with direct anterior approach on 09/09/2024, tolerated procedure well, started ambulating on 09/10/2024, pain is adequately controlled. CBC stable postop, AST ALT trending down significantly, kidney function normal. Acetaminophen levels normal, hepatitis panel negative, GI signed off, recommended to follow-up with liver enzymes after discharge. Patient is medically cleared from IM standpoint Subjective: Seen and examined at bedside, complains of increased heart rate this morning after albuterol, completely resolved in an hour, denied chest pain, shortness of breath Pertinent positives and negatives as discussed above, a complete review of systems was performed and all other systems are negative. Vitals Signs Reviewed. General: [nontoxic], [no distress], [appears at stated age] Derm: [warm], [dry] Head: [atraumatic], [normocephalic], [symmetric] Eyes: [EOMI], [no lid lag], [anicteric sclera] Mouth: [no lip lesion], [mucus membranes moist] Cardiovascular: [S1S2 reg], [no murmur] Lungs: [CTA bilateral], [no rhonchi, no rales] , [no accessory muscle use] Abdominal: [soft], [ nontender to palpation], [no guarding], [no appreciable organomegaly] Ext: [no gross muscle atrophy], [no edema], [no contractures], postop dressing clean and dry Neuro: [ CN II-XI grossly intact], [no focal neuro deficits] Psych: [Alert], [oriented], [appropriate affect] Data Reviewed Today: Pertinent Labs: Hemoglobin 10.4, stable, no leukocytosis, normal platelet count, sodium 135, creatinine normal, AST significantly down to 69, ALT improving to 200 Assessment and Plan:Left displaced femoral neck fracture hospitalist hemiarthroplasty 09/09 -Management per primary admitting orthopedic surgery team including DVT prophylaxis, pain management, weightbearing, and PT/OT. -Cleared for discharge from IM standpoint Acute Transaminitis dilated CBD 2 cm -GI consulted: . Acetaminophen level negative, hepatitis panel nonreactive, GI and send of, can follow-up as needed, needs to monitor LFTs -Ofirmev discontinued amd Atorvastatin held at this time. May resume at discharge -LFT continue to trend down on 09/12 -Medically cleared for discharge Asthma with COPD -Patient follows with Dr. Martínez outpatient denies home oxygen use. -on RA -Continue Trelegy Ellipta inhaler 1 puff daily (secondary to hospital availability supplement with Symbicort 80-4.5 mcg inhaler 2 puffs twice daily and Atrovent nebulizer 4 times daily) -Pulmonary was consulted for surgical clearance and clearing patient from pulmon gonzalo perspective stating no pulmonary contraindications for patient to undergo planned surgery. -Incentive spirometry 10-15 times hourly while awake. Vertigo -Patient does report struggling with vertigo off and on for a while now but states this has been ongoing and only upon standing or quick position changes. Suspect underlying orthostatic hypotension based upon reported symptoms, however unable to complete orthostatic vitals at this time as patient is on strict bedrest at this time. Therefore further evaluation will need to be completed at a later date. Patient denies dizziness/lightheadedness at rest. History of atrial tachycardia, currently maintaining normal sinus rhythm -Continue metoprolol 25 mg twice daily. Hyperlipidemia -on Zetia 10 mg nightly and Crestor 5 mg every other day.Ofirmev discontinued amd Atorvastatin held at this time, may resume at discharge Objective - Vital Signs Vital signs: Vital Signs Temp 98.8 F 09/12/24 07:23 Pulse 92 09/12/24 08:33 Resp 14 09/12/24 07:23 BP 157/77 09/12/24 07:23 Pulse Ox 93 L 09/12/24 08:26 FiO2 Intake & Output 09/11/24 09/12/24 09/12/24 18:59 06:59 18:59 Intake Total 780 540 Balance 780 540 Intake: Oral 780 540 Other: Voiding Method External Catheter # Voids 3 1 # Bowel Movements 1 0 - Labs CBC & Chem 7: 09/12/24 06:14 09/12/24 06:14 Labs: Abnormal Lab Results - Last 24 Hours (Table) 09/12/24 09/12/24 Range/Units 06:14 06:14 RBC 3.24 L (4.10-5.20) X 10*6/uL Hgb 10.4 L (12.0-15.0) g/dL Hct 31.0 L (37.2-46.3) % MCH 32.1 H (27.0-32.0) pg Sodium 135 L (137-145) mmol/L Creatinine 0.50 L (0.52-1.04) mg/dL Calcium 8.3 L (8.4-10.2) mg/dL AST 69 H (14-36) U/L ALT 201 H (4-34) U/L Total Protein 5.0 L (6.3-8.2) g/dL Albumin 2.7 L (3.5-5.0) g/dL
[2024-09-12 11:56] VITALS: PULSE 89
== END 2024-09-12 14:20 | DRG 521 ==
LOC: EC 07:45 → 4SSUR 09:28 → 5NMEDONC 17:03
PROVIDERS: ADMIT Orthopaedic Surgery; ATTEND Orthopaedic Surgery
PROC: 8E0YXBF Computer Assisted Procedure of Lower Extremity, With Fluoroscopy (ICD-10-PCS; 2024-09-09)
PROC: 0SRS0JZ Replacement of Left Hip Joint, Femoral Surface with Synthetic Substitute, Open Approach (ICD-10-PCS; principal; 2024-09-09 16:00)
DX: S72.012A Unspecified intracapsular fracture of left femur, initial encounter for closed fracture (principal); K72.00 Acute and subacute hepatic failure without coma; B17.9 Acute viral hepatitis, unspecified; J44.0 Chronic obstructive pulmonary disease with (acute) lower respiratory infection; W18.30XA Fall on same level, unspecified, initial encounter; Y92.009 Unspecified place in unspecified non-institutional (private) residence as the place of occurrence of the external cause; J47.9 Bronchiectasis, uncomplicated; E78.5 Hyperlipidemia, unspecified; J45.20 Mild intermittent asthma, uncomplicated; I10 Essential (primary) hypertension; K83.8 Other specified diseases of biliary tract; R42 Dizziness and giddiness; M85.88 Other specified disorders of bone density and structure, other site; Z79.51 Long term (current) use of inhaled steroids; Z79.899 Other long term (current) drug therapy; Z85.09 Personal history of malignant neoplasm of other digestive organs; Z90.49 Acquired absence of other specified parts of digestive tract; Z90.710 Acquired absence of both cervix and uterus; Z88.8 Allergy status to other drugs, medicaments and biological substances; Z87.19 Personal history of other diseases of the digestive system
CPT/HCPCS: 36415; 64999; 70450; 71045; 72125; 73501; 73502; 74176; 76705; 80053; 80074; 80143; 80306; 81003; 83690; 83735; 85025; 85610; 85730; 86850; 86900; 86901; 93005; 94640; 94760; 96361; 96365; 96366; 96375; 96376; 99285

== ENCOUNTER → 2024-12-28 | Outpatient (CLI) | payer MEDICARE ==
[2024-12-28 15:37] LABS: Basophils # (A) 0.04 X 10*3/uL (0.00-0.10); Basophils % (A) 0.7 %; Eosinophils # (A) 0.11 X 10*3/uL (0.04-0.35); Eosinophils % (A) 1.9 %; HCT 39.2 % (37.2-46.3); HGB 12.5 g/dL (12.0-15.0); Lymphocytes # (A) 1.69 X 10*3/uL (0.90-5.00); Lymphocytes % (A) 28.9 %; MCH 31.6 pg (27.0-32.0); MCHC 31.9 g/dL (32.0-37.0); MCV 99.2 FL (80.0-97.0); Mean Platelet Volume 11.7 FL (9.5-12.2); Monocytes # (A) 0.38 X 10*3/uL (0.20-1.00); Monocytes % (A) 6.5 %; NRBC Per 100 WBC 0 X 10*3/uL (0.00-0.01); Neutrophils # (A) 3.62 X 10*3/uL (1.80-7.70); Neutrophils % (A) 61.8 %; Platelet Count 271 X 10*3/uL (140-440); RBC 3.95 X 10*6/uL (4.10-5.20); RDW 13.5 % (11.5-14.5); WBC 5.85 X 10*3/uL (4.50-10.00)
[2024-12-28 15:55] LABS: ALT 18 U/L (8-44); AST 28 U/L (13-35); Albumin 3.9 g/dL (3.8-4.9); Albumin/Globulin Ratio 1.56 Ratio (1.60-3.17); Alkaline Phosphatase 82 U/L (41-126); Calcium 9.2 mg/dL (8.7-10.3); Chloride 102 mmol/L (96-109); Chol/HDL Ratio 2.17 Ratio; Globulin 2.5 g/dL (1.6-3.3); Glucose 100 mg/dL (70-110); LDL Cholesterol,Calculated 76.3 mg/dL (0.0-131.0); Potassium 4.6 mmol/L (3.5-5.5); Sodium 139 mmol/L (135-145); T4, Free (Free Thyroxine) 1.19 ng/dL (0.80-1.80); Total Bilirubin <0.2 mg/dL (0.3-1.2); Total Protein 6.4 g/dL (6.2-8.2); VLDL Calculation 11.24 mg/dL (5.00-40.00)
== END | disposition home or self-care (01) ==
LOC: LABWHC1 08:44
PROVIDERS: ATTEND Internal Medicine
DX: E78.5 Hyperlipidemia, unspecified (principal)
CPT/HCPCS: 36415; 80053; 80061; 84439; 84443; 85025